=== PATIENT | female | born 1965 | race Caucasian/White ===

== ENCOUNTER 2016-10-11 12:55 | Emergency (ER) | payer OTHER ==
[~2016-10-11 12:55] MED LIST: ASPIR 8181 MG PO; ASPIRIN81 M4 PO; CLOPIDOGREL75 M1 PO; CLOPIDOGREL75 MG PO; COREG6.25 M1 PO; CORTEF10 M1 PO; CORTEF20 M1 PO; DOCUSATE SOD100 MG PO; ECOTRIN81 MG PO; ESCITALOPRAM OX10 MG PO; FERROUS SULFAT325 M1 PO; GABAPENTIN TAB600 MG PO; GABAPENTIN400 MG PO; HUMALOG 100U100 U/ML SC; LANTUS INS100 UNITS/ SC; LEVEMIR100 UNIT/1 SC; LIPITOR80 M1 PO; LISINOPRIL10 MG PO; MIRALAX17 GM PO; NEURONTIN800 M1 PO; NEURONTIN800 M2 PO; NOVOLOG100 U/ML SC; NOVOLOG100 UNIT/2; NOVOLOG100 UNIT/2 SC; PENICILLIN V P500 M1 PO; PERCOCET 325 MG1 TA2 PO; PRILOSEC 20MG C20 MG PO; PRINIVIL 5MG5 MG PO; SYNTHROID50 MCG PO; Senokot S PO; TYLENOL TAB 32325 MG PO; VICODIN5-300 PO; WELLBUTRIN 100100 MG PO
== END 2016-10-11 13:01 | disposition admitted as inpatient to this hospital (09) ==
LOC: ERH 12:55
DX: R06.02 Shortness of breath (principal)

== ENCOUNTER 2016-10-25 13:07 | Inpatient (IN) | payer OTHER ==
[~2016-10-25] VITALS: Ht 162.6 cm; Wt 63.5 kg
--- NOTE | 2016-10-25 13:10 | ED GENERAL ADULT ---
History of Present Illness General Chief Complaint: General Adult Stated Complaint: BIBA FOR HIGH BS Source: patient, family, EMS Exam Limitations: clinical condition Vital Signs & Intake/Output Vital Signs & Intake/Output Vital Signs Date Time Temp Pulse Resp B/P B/P Pulse O2 O2 Flow FiO2 Mean Ox Delivery Rate 10/26 1999 98 Room Air 10/25 1729 96.5 101 18 134/77 96 10/25 1632 98.7 99 22 147/76 99 Room Air 10/25 1535 97 21 142/74 98 Room Air 10/25 1444 97.7 108 20 147/76 95 Room Air 10/25 1320 97 Room Air 10/25 1318 97.2 105 22 152/105 99 Room Air Allergies Coded Allergies: codeine (ITCHING 08/02/15) Reconcile Medications Aspirin (Aspirin*) 81 MG TAB.CHEW 1 TAB PO DAILY HEART (Reported) Atorvastatin Calcium (Lipitor) 80 MG TABLET 1 TAB PO DAILY lipid lowering ( Reported) Carvedilol (Coreg) 6.25 MG TABLET 1 TAB PO BID heart health (Reported) Clopidogrel Bisulfate (Clopidogrel) 75 MG TABLET 1 TAB PO DAILY BLOOD THINNER (Reported) Escitalopram Oxalate 10 MG TABLET 1 TAB PO DAILY MENTAL HEALTH (Reported) Gabapentin (Neurontin) 800 MG TABLET 1 TAB PO TID NEUROPATHY (Reported) Hydrocortisone (Cortef) 20 MG TABLET 20 MG PO ONCE adrenal insufficiency in the concierge manager before breakfast Hydrocortisone (Cortef) 10 MG TABLET 10 MG PO ONCE adrenal insufficiency in the evening around the suppertime Insulin Aspart (Novolog) 100 UNIT/ML VIAL 0 SC SEE ADMIN CRITERIA DM 8-150 2 units 151-200 also give 2 units 201-250 3 units 251-300 4 units 301-350 5 units 351-400 6 units Insulin Detemir (Levemir) 100 UNIT/ML VIAL 4 UNIT SC BID DM Levothyroxine Sodium (Synthroid) 50 MCG TABLET 50 MCG PO ONCE hypothyrodism Lisinopril (Prinivil) 5 MG TAB 1 TAB PO DAILY BP (Reported) Triage Nurses Notes Reviewed? yes Onset: Abrupt Duration: day(s): (2) Timing: multiple episodes today Injury Environment: home Severity: moderate, severe No Modifying Factors: none Associated Symptoms: ABDOMINAL PAIN, NAUSEA, VOMITING HPI: 51 year old female presents via EMS from home for chief complaint of nausea, vomiting and abdominal pain for 2 days. According to her significant other she has been compliant with her long-acting insulin but ran out of her short acting insulin 1 week ago. She was unable to mixing picker tender the vial because it was too expensive. On Tuesday she was feeling fine. Yesterday she started with nausea and vomiting. Sugars have been running high at home. Patient complains of abdominal pain nausea vomiting. She is tachycardic on arrival with dry mucous membranes and ketotic breath. Past History Medical History Any Pertinent Medical History? see below for history Neurological: peripheral neuropathy EENT: NONE Cardiovascular: hyperlipidemia, STEMI, drug-eluting stent placement in October [address] elevation myocardial infarction Respiratory: NONE Gastrointestinal: NONE Hepatic: NONE Renal: NONE Musculoskeletal: NONE Psychiatric: depression Endocrine: diabetes (TYPE 1), hypothyroidism Blood Disorders: NONE Cancer(s): NONE RESOURCES REPRESENTATIVE/Reproductive: miscarriage History of MRSA: No History of VRE: No History of CDIFF: No Influenza Vaccine: 02/13/15 Surgical History Surgical History: tubal ligation, carpal tunnel surgery trigger finger surgery Psychosocial History Who do you live with Significant Other Services at Home None What is your primary language Eritrean Family History Family History, If Any: grandmother FH: breast cancer Hx Contributory? No Review of Systems Review of Systems Constitutional: Reports: weakness. Denies: chills, fever. EENTM: Reports: no symptoms. Respiratory: Denies: cough. Cardiovascular: Denies: chest pain. GI: Reports: abdominal pain, nausea, vomiting. Genitourinary: Reports: no symptoms. Musculoskeletal: Reports: no symptoms. Skin: Reports: no symptoms. Neurological/Psychological: Reports: anxiety. Hematologic/Endocrine: Denies: bruising, bleeding, polyuria, polydipsia. Immunologic/Allergic: Denies: splenectomy. All Other Systems: Reviewed and Negative Physical Exam Physical Exam General Appearance: alert, awake, moderate distress, severe distress, thin Head: atraumatic Eyes: Bilateral: PERRL, EOMI. Ears, Nose, Throat: DRY MUCUS MEMBRANES Neck: normal inspection, supple Respiratory: normal breath sounds, chest non-tender, no respiratory distress Cardiovascular: tachycardia Peripheral Pulses: 2+ radial (R), 2+ radial (L) Gastrointestinal: soft, non-tender Neurologic/Psych: no motor/sensory deficits, awake, alert, ORIENTED X 2 Skin: intact, normal color, warm/dry Core Measures ACS in differential dx? No CVA/TIA Diagnosis: No Severe Sepsis Present: No Septic Shock Present: No Progress Differential Diagnoses I considered the following diagnoses in my evaluation of the patient: [DKA, HYPERGLYCEMIA, INSULIN NON COMPLIANCE, PANCREATITIS, DRUG ABUSE] Plan of Care: Orders Procedure Date/time Status ARTERIAL BLOOD GAS (GEN) 10/26 0500 Active ICU LAB BUNDLE 10/26 0500 Active CBC WITHOUT DIFFERENTIAL 10/26 0500 Active ICU LAB BUNDLE 10/26 0100 Active Nothing by Mouth 10/25 D Active Lab Add-on Test 10/25 184 Active LACTIC ACID 10/25 1847 Complete Wound Care/Dressing 10/25 184 Complete Weight 10/25 1845 Active VTE Mechanical Prophylaxis 10/25 1845 Active Vital Signs 10/25 184 Active Turn and Reposition 10/25 184 Active Drains/Tubes 10/25 1844 Complete Teach/Educate 10/25 184 Active Skin Integrity Protocol 10/25 184 Active Skin/Pressure Ulcer Assess (Sk 10/25 1845 Active Precautions 10/25 184 Active Pain Treatment and Response 10/25 184 Active Nutritional Intake, Monitor 10/25 184 Active Isolation 10/25 1845 Active CIWA 10/25 184 Complete Patient Care Conference 10/25 1845 Active Activity/Ambulation 10/25 1845 Active BASIC ELECTROLYTES PLUS BUN&CR 10/25 1840 Complete Pathway - chart 10/25 1742 Active BLOOD CULTURE 10/25 1724 Active Code Status 10/25 1713 Active BASIC ELECTROLYTES PLUS BUN&CR 10/25 1610 Complete VRE ACTIVE SURVIELLANCE 10/25 1538 Active ACTIVE SURVEILLANCE NARES 10/25 1538 Active Saline Lock 10/25 1535 Active Pathway - chart 10/25 1535 Active House Staff 10/25 1535 Active Patient Data 10/25 1535 Active Patient Data 10/25 1456 Active Admit to inpatient 10/25 1447 Active Faria, Insertion/Removal/Asses 10/25 1443 Active CULTURE,URINE 10/25 1443 Active LACTIC ACID 10/25 1410 Complete FingerStick- Glucose 10/25 1318 Complete Telemetry/Tobacco Stripping Machine Operator 10/25 1316 Active MIXED VENOUS BLOOD GAS (GEN) 10/25 1315 Active Intake & Output 10/25 1315 Active URINE DRUGS OF ABUSE 10/25 1315 Complete URINALYSIS 10/25 1315 Complete TROPONIN LEVEL 10/25 1315 Complete PARTIAL THROMBOPLASTIN TIME 10/25 1315 Complete PROTHROMBIN TIME 10/25 1315 Complete MAGNESIUM 10/25 1315 Complete LIPASE 10/25 1315 Complete ETHANOL 10/25 1315 Complete COMPREHENSIVE METABOLIC PANEL 10/25 1315 Complete CBC WITHOUT DIFFERENTIAL 10/25 1315 Complete ACETONE 10/25 1315 Complete EKG 10/25 1315 Active VTE Mechanical Prophylaxis 10/25 UNK Active Vital Signs 10/25 UNK Active MISTAKE 10/25 UNK Active Intake & Output 10/25 UNK Complete FingerStick- Glucose 10/25 UNK Complete FingerStick- Glucose 10/25 UNK Active Activity/Ambulation 10/25 UNK Active Current Medications Sig/Maximus Start time Last Medication Dose Stop Time Status Admin Atorvastatin Calcium 80 MG 1700 10/26 1700 AC (Lipitor) Aspirin 81 MG DAILY 10/26 1000 AC (Aspirin) Gabapentin 800 MG TID 10/26 1000 AC (Neurontin) Lisinopril 5 MG DAILY 10/26 1000 AC (Prinivil) Carvedilol 6.25 MG BID 10/25 2200 AC (Coreg) Heparin Sodium 5,000 UNIT Q8 10/25 2200 AC (Porcine) Promethazine HCl 50 MG ONCE ONE 10/25 2100 CAN (Phenergen) 10/25 2101 Potassium Chloride 20 MEQ Q8H 10/25 1845 AC 10/25 (KCl 20MEQ in D5W 1926 2NS 1000ML) Dextrose/Sodium 1,000 ML Chloride (D5W-1/2 Normal Saline 1000ML) Clopidogrel Bisulfate 75 MG DAILY 10/25 1802 AC 10/25 (Plavix) 1927 Acetaminophen 650 MG Q6P PRN 10/25 1745 AC (Tylenol) Acetaminophen 1,000 MG Q6P PRN 10/25 1745 AC (Ofirmev) Morphine Sulfate 2 MG Q4P PRN 10/25 1745 AC (Morphine) Potassium Chloride 20 MEQ 200 MLS/HR 10/25 1730 CAN (KCl 20MEQ in NS 1000ML) Ondansetron HCl 4 MG Q6P PRN 10/25 1630 AC 10/25 (Zofran) 1823 Hydrocortisone 50 MG Q8 10/25 1527 AC 10/25 Sodium Succinate 1628 (Solucortef) Laboratory Tests 10/25/16 1900: Lactic Acid 1.4 10/25/16 1900: Anion Gap 13, Estimated GFR 53 L, BUN/Creatinine Ratio 26.4 H 10/25/16 1810: Sodium Cancelled, Potassium Cancelled, Chloride Cancelled, Carbon Dioxide Cancelled, Anion Gap Cancelled, BUN Cancelled, Creatinine Cancelled, BUN/ Creatinine Ratio Cancelled 10/25/16 1810: Sodium Cancelled, Potassium Cancelled, Chloride Cancelled, Carbon Dioxide Cancelled, Anion Gap Cancelled, BUN Cancelled, Creatinine Cancelled, Glucose Cancelled, Calcium Cancelled, Phosphorus Cancelled, Magnesium Cancelled, Total Bilirubin Cancelled, AST Cancelled, ALT Cancelled, Albumin Cancelled 10/25/16 1640: Anion Gap 19 H, Estimated GFR 43 L, BUN/Creatinine Ratio 24.6 10/25/16 1610: Sodium Cancelled, Potassium Cancelled, Chloride Cancelled, Carbon Dioxide Cancelled, Anion Gap Cancelled, BUN Cancelled, Creatinine Cancelled, Glucose Cancelled, Calcium Cancelled, Phosphorus Cancelled, Magnesium Cancelled, Total Bilirubin Cancelled, AST Cancelled, ALT Cancelled, Albumin Cancelled 10/25/16 1502: Urine Opiates Screen < 100.00, Methadone Screen 43, Barbiturate Screen < 60, Ur Phencyclidine Scrn < 6.00, Amphetamines Screen < 100, U Benzodiazepines Scrn < 85, Urine Cocaine Screen > 1000 H, Urine Cannabis Screen > 80.00 H, Urinalysis LIGHT H, Urine Color YEL, Urine Clarity CLEAR, Urine pH 6.0, Ur Specific [place] 1.020, Urine Protein TRACE H, Urine Ketones >=80, Urine Nitrite NEG, Urine Bilirubin NEG, Urine Urobilinogen 0.2, Ur Leukocyte Esterase NEG, Ur Microscopic SEDIMENT EXAMINED, Urine RBC FEW H, Urine WBC RARE, Ur Epithelial Cells RARE, Urine Bacteria FEW H, Hyaline Casts RARE H, Granular Casts RARE H , Urine Hemoglobin TRACE-INTACT, Urine Glucose >=1000 H 10/25/16 1410: Anion Gap 20 H, Estimated GFR 37 L, BUN/Creatinine Ratio 26.7 H, Glucose 607 *H, Lactic Acid 2.5 H, Calcium 8.1 L, Magnesium 1.9, Total Bilirubin 0.7, AST 20, ALT 33, Alkaline Phosphatase 123, Troponin I 0.02, Total Protein 6.0 L, Albumin 3.6, Globulin 2.4, Albumin/Globulin Ratio 1.5, Lipase 73, PT 11.6, INR 1.11, APTT 31, Serum Alcohol < 10.0, Acetone Level POSITIVE AT 1:8 DIL 10/25/16 1320: Bicarbonate Actual 5 L, Mixed VBG pH 7.14 L, Mixed VBG pCO2 15 L, Mixed VBG O2 Saturation 51 H, Carboxyhemoglobin 0.1 L, O2 Concentration % RA, O2 Delivery Method RA, CBC w Diff MAN DIFF ORDERED, RBC 4.20, MCV 90.7, MCH 29.9, RDW 13.6, MPV 9.7, Gran % 92.0 H, Lymphocytes % 4.6 L, Monocytes % 3.2, Eosinophils % 0, Basophils % 0.2, Absolute Granulocytes 20.2 H, Segmented Neutrophils 91 H, Band Neutrophils 5, Absolute Lymphocytes 1.0 L, Lymphocytes 3 L, Monocytes 1 L, Absolute Monocytes 0.7 H, Absolute Eosinophils 0, Absolute Basophils 0, Platelet Estimate ADEQUATE, Normocytic RBCs VERIFIED, Normochromic RBCs VERIFIED, PUBS MCHC 32.9 L, Phlebotomy Draw Site LAC Microbiology 10/25 2049 BLOOD: Blood Culture - RECD 10/26 1919 BLOOD: Blood Culture - RECD 10/25 183 UPPER RESP: Surveillance Culture - RECD 10/25 1830 GI: Surveillance Culture - RECD 10/25 1502 URINE ROUT: Urine Culture - RECD ph 7.14 on mixed venous gas. acteone positive, bicarb 8. DR ASENCIO CONSULTED WHO EVALUTED PATIENT IN THE ED WELL DR ESTEVES WHO ADMITTED PATIENT. SHE RECEIVED 4 LITRES IV FLUIDS AND INSULIN DRIP WAS STARTED. HYDROCORTISONE [address] ASENCIO PATIENT WITH ADRENAL INSUFFICIENCY. (SARAI BONDS,JOSAFAT) Diagnostic Imaging: Viewed by Me: Radiology Read, CT Scan. Discussed w/RAD: Radiology Read, CT Scan. CXR Impression: PATIENT: JES PAIGE PRESENT AGE: 51 PATIENT ACCOUNT NO: [id number] : 66 LOCATION: [facility] ORDERING PHYSICIAN: JOSAFAT MOON MD SERVICE DATE: 10/25/16666 EXAM TYPE: RAD - XRY -PORTABLE CHEST XRAY EXAMINATION: XR PORTABLE CHEST CLINICAL INFORMATION: DKA. Critically ill. COMPARISON: None TECHNIQUE: Portable frontal view of the chest was obtained. 2:11 PM. FINDINGS: No significant abnormality is noted involving the heart, lungs, mediastinum, bony thorax or soft tissues. Incidental note made of a small artifact over the left upper lung. EKG leads overlie the chest as well. IMPRESSION: Unremarkable examination. DICTATED BY: GWENDOLYN BURKS MD DATE/ TIME DICTATED:10/25/161446 COMPOSITION WORKER:DORIS DATE/TIME TRANSCRIBED: 10/25/161446 CONFIDENTIAL, DO NOT COPY WITHOUT APPROPRIATE AUTHORIZATION. < Electronically signed in Other Vendor System> SIGNED BY: GWENDOLYN BURKS MD 1453 Initial ED EKG: SINUS TACHYCARDIA Departure Departure Time of Disposition: 1447 Disposition: STILL A PATIENT Condition: Stable Clinical Impression Primary Impression: DKA (diabetic ketoacidoses) Secondary Impressions: Cannabis abuse, Cocaine abuse Referrals: TIMBO SANTA MD (PCP/Family) Departure Forms: Customer Survey General Discharge Information Admission Note Spoke With: DANIELITO BONDS,Mikey RIZZO Documentation of Exam: Documentation of any treatments & extenuating circumstances including Concerns Regarding Discharge (functional status, medication knowledge or non-compliance, living conditions, etc.) that warrant an admission rather than observation: [ICU MONITOR, IV FLUID RESUSSCITATION, INSULIN DRIP, MONITOR ELECTROLYTES, MONITOR I/ O, ENDOCRINE CONSULT DR ASENCIO, F/U CT ABDOMEN/PELVIS ] Critical Care Note Critical Care Note Critical Care Time: 30-74 min
--- NOTE | 2016-10-25 13:27 | NUR ---
51 Y/O FEMALE BIBA FROM HOME FOR EVAL OF N/V SINCE YESTERDAY AND HIGH BLOOD SUGARS. PER EMS, GLUCOMETER READ "HIGH". PT ADMITS TO RUNNING OUT OF SHORT ACTING INSULIN RECENTLY HOWEVER TOLD THIS RN SHE LAST USED IT THIS AM. C/O N/V. DENIES PAIN. MUCOUS MEMBRANES DRY. PRE HOSPITAL IV IN PLACE TO R LOWER EXTREMITY. NORMAL SALINE INFUSING ON ARRIVAL TO ED. MED WITH CHRISTIANO MOON AT THE BEDSIDE
[2016-10-25 13:33] LABS: ABSOLUTE BASOPHIL COUNT 0 /CUMM (0.0-0.2); ABSOLUTE EOSINOPHIL COUNT 0 /CUMM (0.0-0.7); ABSOLUTE GRANULOCYTE CT 20.2 /CUMM (1.4-6.5); ABSOLUTE MONOCYTE COUNT 0.7 /CUMM (0.10-0.60); BASOPHIL % 0.2 % (0.0-2.0); EOSINOPHIL % 0 % (0-5); HEMATOCRIT 38.1 % (37-47); MEAN CORPUSCULAR HGB 29.9 PG (27.0-31.0); MEAN CORPUSCULAR HGB CONC 32.9 G/DL (33.0-37.0); MEAN CORPUSCULAR VOLUME 90.7 FL (81.0-99.0); MEAN PLATELET VOLUME 9.7 FL (7.4-10.4); PLATELET COUNT 292 /CUMM (130-400); RBC DISTRIBUTION WIDTH 13.6 % (11.5-14.5)
--- NOTE | 2016-10-25 14:05 | NUR ---
22 G DIANE PLACED IN RW. LITER # 2 OF N/S STARTED W/O VIA RLE LITER # 3 OF N/S STARTED W/O VIA RW DR MOON IN TO RE-EVALUATE PT
--- NOTE | 2016-10-25 14:06 | NUR ---
PHARMACY CALLED - MIXING INSULIN DRIP AND WILL CALL WHEN READY
--- NOTE | 2016-10-25 14:12 | NUR ---
SST AND BLUE TOP DRAWN AND SENT TO LAB
--- NOTE | 2016-10-25 14:14 | NUR ---
MED WITH ADDITIONAL DOSE ZOFRAN PER JUL. XRAY AT BEDSIDE
[2016-10-25 14:30] LABS: PT 11.6 SEC (9.4-12.5); PTT 31 SEC (25-37)
--- NOTE | 2016-10-25 14:44 | NUR ---
UNABLE TO VERIFY HOME MEDS WITH PT
--- NOTE | 2016-10-25 14:47 | NUR ---
4TH LITER INFUSING PER MARY ESTEVES AT THE BEDSIDE AWAITING POTASSIUM RESULT PRIOR TO INSULIN DRIP START.
--- NOTE | 2016-10-25 14:48 | NUR ---
CRITICAL TEST RESULTS [id number] JES PAIGE 51 F TESTS AND RESULTS: GLUCOSE 607, POTASSIUM 6, AND CO2 8 Results received and read back by: CARYL CAI Results received date and time: 10/25/16 1449 The following provider was notified of the results, and read the results back: DR. MOON Notified date and time: 10/25/16 at 1449
--- NOTE | 2016-10-25 14:53 | RADIOLOGY REPORT ---
EXAMINATION: XR PORTABLE CHEST CLINICAL INFORMATION: DKA. Critically ill. COMPARISON: None TECHNIQUE: Portable frontal view of the chest was obtained. 2:11 PM. FINDINGS: No significant abnormality is noted involving the heart, lungs, mediastinum, bony thorax or soft tissues. Incidental note made of a small artifact over the left upper lung. EKG leads overlie the chest as well. IMPRESSION: Unremarkable examination.
--- NOTE | 2016-10-25 15:02 | NUR ---
URINE OBTAINED AND SENT
--- NOTE | 2016-10-25 15:03 | NUR ---
DELA CRUZ INSERTED PER ORDER. DRAINING 800 ML LIGHT CLEAR YELLOW URINE, TRIO SENT BY [facility]ST. 3RD AND 4TH LITERS INFUSING. AWAITING INSULIN DRIP FROM PHARMACY.
--- NOTE | 2016-10-25 15:15 | NUR ---
INSULIN DRIP INITIATED AT 5 UNITS/HR - 5 ML/HR PER DR MOON 4TH LITER CONTINUES TO INFUSE. PT C/O FEELING COLD. NO OTHER COMPLAINTS. ADDITIONAL BLANKETS PROVIDED.
--- NOTE | 2016-10-25 15:16 | NUR ---
REPORT GIVEN TO SAGE GILLESPIE
--- NOTE | 2016-10-25 15:42 | History & Physical ---
See Addendum ROXY BOLTONELVIS 10/25/16 1541: General Information and HPI MD Statement: I have seen and personally examined JES PAIGE and documented this H& P. The patient is a 51 year old F who presented with a patient stated chief complaint of [DKA]. Source of Information: patient Exam Limitations: clinical condition History of Present Illness: Ms. Paige is a 51-year-old female with past medical history of coronary artery disease status post-drug eluting stent placement in 2014,type 1 diabetes mellitus on Levemir 4 units twice a day and NovoLog sliding scale, history of acute blood loss anemia secondary to vaginal bleeding, subsequent hysterectomy in 2014, hyperlipidemia, depression with suicidal ideation, hypothyroidism on Synthroid, adrenal insufficiency on steroids both 2/2 to hypopituatarism diagnosedin 2015 with no obvious pituatary lesions on CT scan, on medical marijuana to increase appetite, cocaine abuser, current active smoker, occasional alcoholic presented to the emergency department from home via EMS chief complain off nausea, vomiting and abdominal pain since one week prior to admission however worsening for past 2 days. Her significant other - was at bedside and she has been living with him for 33 years and was contributing to the history intermittently. As per the patient, she was on Levemir 4 units twice a day, and also on NovoLog sliding scale, however she stopped taking her NovoLog sliding scale at least one week prior to admission, as she does not have an insurance that pays for prescription and therefore it was too expensive for her.She noticed that her sugars were running high therefore she herself increase the Levemir to 10 units twice a day, she continued taking the long-acting and was not taking the short- acting insulin. She did endorse that her sugars had been running high and the night prior to admission it was noted to be 476 and the second one was in 500s. She also does endorse that she has not been very compliant with checking her sugars and has not checked her sugars regular basis in last few months. She also snorts cocaine and the last time she used cocaine was 2 days prior to presentation.she smokes one pack of cigarettes in 3-4 days and has been smoking since she was 16 years of age. He says that she has had continuous vomiting and puking episodes, feels nauseous and has not been able to keep anything down for the last 2-3 days. 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 She performs all her activities of living by herself, drives around, she sees Dr. braga and as her primary care, Dr. mahoney as her general studies program chair and Dr. Vázquez as her application tester. Allergies/Medications Allergies: Coded Allergies: codeine (ITCHING 08/02/15) Home Med list Aspirin (Aspirin*) 81 MG TAB.CHEW 1 TAB PO DAILY HEART (Reported) Atorvastatin Calcium (Lipitor) 80 MG TABLET 1 TAB PO DAILY lipid lowering ( Reported) Carvedilol (Coreg) 6.25 MG TABLET 1 TAB PO BID heart health (Reported) Clopidogrel Bisulfate (Clopidogrel) 75 MG TABLET 1 TAB PO DAILY BLOOD THINNER (Reported) Escitalopram Oxalate 10 MG TABLET 1 TAB PO DAILY MENTAL HEALTH (Reported) Gabapentin (Neurontin) 800 MG TABLET 1 TAB PO TID NEUROPATHY (Reported) Hydrocortisone (Cortef) 20 MG TABLET 20 MG PO ONCE adrenal insufficiency 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 before breakfast Hydrocortisone (Cortef) 10 MG TABLET 10 MG PO ONCE adrenal insufficiency in the evening around the suppertime Insulin Aspart (Novolog) 100 UNIT/ML VIAL 0 SC SEE ADMIN CRITERIA DM 8-150 2 units 151-200 also give 2 units 201-250 3 units 251-300 4 units 301-350 5 units 351-400 6 units Insulin Detemir (Levemir) 100 UNIT/ML VIAL 4 UNIT SC BID DM Levothyroxine Sodium (Synthroid) 50 MCG TABLET 50 MCG PO ONCE hypothyrodism Lisinopril (Prinivil) 5 MG TAB 1 TAB PO DAILY BP (Reported) Compliance With Home Meds: GOOD Past History Travel History Traveled to [place] past 21 day No Medical History Neurological: peripheral neuropathy EENT: NONE Cardiovascular: hyperlipidemia, STEMI, drug-eluting stent placement in October [address] elevation myocardial infarction Respiratory: NONE Gastrointestinal: NONE Hepatic: NONE Renal: NONE Musculoskeletal: NONE Psychiatric: depression Endocrine: diabetes (TYPE 1), hypothyroidism Blood Disorders: NONE Cancer(s): NONE 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 spouse Services at Home: None Primary Language: [place] Smoking Status: Current Everyday Smoker ETOH Use: occasional use Illicit Drug Use: cocaine, marijuana Living Will? no Functional Ability ADLs Independent: dressing, eating, toileting, bathing. Ambulation: independent IADLs Independent: shopping, housework, finances, food prep, telephone, transportation , medication admin. 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 EENTM: Reports: see HPI. Cardiovascular: Denies: chest pain, edema, orthopena, palpitations, peripheral edema, syncope. Respiratory: Denies: cough, hemoptysis, orthopnea, short of breath, sputum production, stridor, wheezing. GI: Reports: bloating, nausea, vomiting. Denies: constipation, diarrhea, distention , bowel incontinence, melena, bloody stool, changes in stool. Genitourinary: Denies: discharge, dysuria, frequency, hematuria. Musculoskeletal: Denies: back pain, gout, joint pain, joint swelling, muscle pain, muscle stiffness. Skin: Denies: cysts, change in skin color, change in hair/nails, dryness. Neurological/Psychological: Reports: no symptoms. Hematologic/Endocrine: Reports: no symptoms. Immunologic/Allergic: Reports: no symptoms. All Other Systems: Reviewed and Negative Exam & Diagnostic Data Last 24 Hrs of Vital Signs/I&O Vital Signs Date Time Temp Pulse Resp B/P B/P Pulse O2 O2 Flow FiO2 Mean Ox Delivery Rate 10/25 1444 97.7 108 20 147/76 95 Room Air 10/25 1320 97 Room Air 10/25 1318 97.2 105 22 152/105 99 Room Air Intake & Output 10/25 1600 10/25 0800 10/25 0000 Intake Total 3000 Output Total 800 Balance 2200 Intake, IV 3000 Output, Urine 800 Patient 63.503 kg Weight Weight Reported by Patient Measurement Method Physical Exam General Appearance Alert, Oriented X3, Cooperative, Mild Distress Skin No Rashes, No Breakdown, No Significant Lesion Skin Temp/Moisture Exam: Cool/Dry Sepsis Skin Exam (color): Pale HEENT Atraumatic, PERRLA, EOMI Neck Supple, No JVD Lymphatic no LAD Cardiovascular Regular Rate, Normal S1, Normal S2 Lungs Clear to Auscultation, Normal Air Movement Abdomen Normal Bowel Sounds, Soft, No Tenderness Neurological Strength at 5/5 X4 Ext, Normal Tone, Sensation Intact, Cranial Nerves 3-12 NL Extremities No Clubbing, No Cyanosis, No Edema, Normal Pulses Vascular Normal Pulses Last 24 Hrs of Labs/Hi: Laboratory Tests 10/25/16 1502: Urine Opiates Screen Pending, Methadone Screen Pending, Barbiturate Screen Pending, Ur Phencyclidine Scrn Pending, Amphetamines Screen Pending, U Benzodiazepines Scrn Pending, Urine Cocaine Screen Pending, Urine Cannabis Screen Pending, Urinalysis LIGHT H, Urine Color YEL, Urine Clarity CLEAR, Urine pH 6.0, Ur Specific [place] 1.020, Urine Protein TRACE H, Urine Ketones >=80, Urine Nitrite NEG, Urine Bilirubin NEG, Urine Urobilinogen 0.2, Ur Leukocyte Esterase NEG, Ur Microscopic SEDIMENT EXAMINED, Urine RBC FEW H, Urine WBC RARE , Ur Epithelial Cells RARE, Urine Bacteria FEW H, Hyaline Casts RARE H, Granular Casts RARE H, Urine Hemoglobin TRACE-INTACT, Urine Glucose >=1000 H 10/25/16 1410: Anion Gap 20 H, Estimated GFR 37 L, BUN/Creatinine Ratio 26.7 H, Glucose 607 *H, Calcium 8.1 L, Magnesium 1.9, Total Bilirubin 0.7, AST 20, ALT 33, Alkaline Phosphatase 123, Troponin I 0.02, Total Protein 6.0 L, Albumin 3.6, Globulin 2.4, Albumin/Globulin Ratio 1.5, Lipase 73, PT 11.6, INR 1.11, APTT 31, Serum Alcohol < 10.0, Acetone Level POSITIVE AT 1:8 DIL 10/25/16 1320: Bicarbonate Actual 5 L, Mixed VBG pH 7.14 L, Mixed VBG pCO2 15 L, Mixed VBG O2 Saturation 51 H, Carboxyhemoglobin 0.1 L, O2 Concentration % RA, O2 Delivery Method RA, CBC w Diff MAN DIFF ORDERED, RBC 4.20, MCV 90.7, MCH 29.9, RDW 13.6, MPV 9.7, Gran % 92.0 H, Lymphocytes % 4.6 L, Monocytes % 3.2, Eosinophils % 0, Basophils % 0.2, Absolute Granulocytes 20.2 H, Segmented Neutrophils 91 H, Band Neutrophils 5, Absolute Lymphocytes 1.0 L, Lymphocytes 3 L, Monocytes 1 L, Absolute Monocytes 0.7 H, Absolute Eosinophils 0, Absolute Basophils 0, Platelet Estimate ADEQUATE, Normocytic RBCs VERIFIED, Normochromic RBCs VERIFIED, PUBS MCHC 32.9 L, Phlebotomy Draw Site LAC Microbiology 10/25 1537 UPPER RESP: Surveillance Culture - COLB 10/25 1538 GI: Surveillance Culture - COLB 10/25 1502 URINE ROUT: Urine Culture - RECD Diagnostic Data EKG Results nsr, sinus tachycardia, AZ 180, Qtc :473, T-wave inversions in V2, nonspecific ST-T wave changes. CXR Results FINDINGS: No significant abnormality is noted involving the heart, lungs, mediastinum, bony thorax or soft tissues. Incidental note made of a small artifact over the left upper lung. EKG leads overlie the chest as well. IMPRESSION: Unremarkable examination. Other Results CT abdome and pelvis pending Assessment/Plan Assessment: In summary, Ms Parks is a 51-year-old female with past medical history of coronary artery disease status post-drug eluting stent placement in 2014,type 1 diabetes mellitus on Levemir 4 units twice a day and NovoLog sliding scale, history of acute blood loss anemia secondary to vaginal bleeding, subsequent hysterectomy in 2014, hyperlipidemia, depression with suicidal ideation, secondary hypothyroidism on Synthroid, adrenal insufficiency on steroids - both 2/2 to hypopituitarism diagnosed on last admission in 2015, on medical marijuana to increase appetite, cocaine abuser, current active smoker, occasional alcoholic presented to the emergency department from home via EMS chief complain of nausea, vomiting and abdominal pain since one week prior to admission however worsening for past 2 days. Vitals on admission : MAXIMUM TEMPERATURE of 97.7, tachycardic at 108, respiration of 20, blood pressure of 152/105, she was 99% saturating on room air. White Count of 22.0, H/H of 12.5/38.1, platelet of 292. Electrolytes : sodium of 132, potassium of 6.0, BUN/creatinine 40/1.5 (baseline creatinine 1.5), anion gap of 20, glucose elevated at 607, serum acetone positive. ABG showed pH of 7.14/PCO2 of 15/PO2 of 51/carboxyhemoglobin of 0.1/bicarbonate of 5. She had calcium of 8.1, magnesium of 1.9, initial set of troponin was 0.02. Lipase was 73, serum alcohol level was less than 10. Liver function tests are within normal limits. Chest X-ray did not show any acute cardiacpulmonary changes. Initial EKG in the ED showed sinus tachycardia with nonspecific ST-T wave changes QTC of 473. Urinalysis showed no signs of infection, however significant glucosuria, positive ketones. Urine toxicology was positive for urine cocaine send urine cannabis. Of note, intial set of lactic acid was not drawn in the ED, patient does meet positive sepsis criteria due to tachycardiaa amd white count, increased RR, however this presentations seems to be 2/2 to DKA and not sepsis, it's already been > 6 hours since admission, I talked to lab, lactic acid was added to intial labs drawn, luckily they had a mckeon top from admission, however repeat is ordered now which is more than 3 hours apart. Patient did recieve enough fluids, however as there is no focus of infection now, we will not start emperic antibiotic, cultures were sent. Problem list alongwith assessment and plan. #1History of type 1 diabetes mellitus complicated with diabetic neuropathy, now presenting in DKA, most likely presents precipitated by noncompliance and drug abuse. Edwina does have anion gap metabolic acidosis with high sugars, poor oral intake, with positive serum ketones, she seems to be in florid DKA. Will start IV fluid supplementation with normal saline.She also seems to be dehydrated and hypovolemic therefore she needs fluid supplementation at the rate of 15-20 mL per KG/lean body weight/hour. He did receive 4 L of normal saline so far. Her initial potassium is about 6, we will not supplement potassium for now, untill if falls < 5.3, will add to fluids. Subsequent BEP at 14:10 and 16:10 PM, to ensure anion gap is corrected and monitor potassium closely.Continue insulin gtt, reduce to 4 unit/ hour, currently at 4 units per hour. sodium 132, when corrected for hyperglycemia , falls WNL. #2 Nausea/vomiting/poor oral intake. #3 Hyperkalemia 2/2 DKA and cellular shift #4 leucocytosis most likely reactive. #5 CITLALLI most likely prerenal 2/2 to dehydration 2/2 to DKA #6 Anion Gap metabolic acidosis 2/2 to DKA #7 Cocaine intoxication #8 H/o hypopituitarism #9 hypothyroidism and adrenal insufficiency 2/2 ot hypopituitarism. #10 H/o CAD s/p stent ( drug eluting ) in 2014 #11 h/o depression Plan : Respiratory * Not in any respiratory distress * Current active smoker, no COPD diagnosis. * CXR within normal range, no acute Cardiopulmonary findings. * White count most likely reactive. * Patient in non-anion gap metabolic acidosis, compensated with initial respiratory alkalosis as the patient was in respiratory distress with quick shallow breaths,however currently stable. * Continue to monitor oxygen keep oxygen saturation greater than 92%. * Repeat ABG to ensure correction of the acidosis. Infectious Disease Leucocytosis reactive * Even though patient, does meet sepsis criteria with tachycardia, white count, however the white count seems to be reactive, and the tachycardia seems to be due to dehydration. * However blood cultures, respiratory cultures were sent. * Patient does not look to be in sepsis. * However will check lactic acid X2. * Chest x-ray negative. * Ct to follow Ct abdomen and pelvis , pending. * Ct hydration. * Continue to monitor vitals. Cardiology H/o CAD s/p drug eluting stent placement ( 2014) Sinus tachycardia most like 2/2 to dehydration * Ct aspirin from am. * Ct statin from am. * Ct plavix from am. * Will start coreg today. * Last echo in 2016, 03/09/2016, showed EF greater than 60%, no diastolic dysfunction, no wall motion abnormalities. * Initial set of troponins negative. Hematology * h/h stable Metabolic AGMA 2/2 to DKA hypopituitarism secondary hyperthyroidism and adrenal insufficiency Hyperkalemia * Ct monitor fingerstick every hour. * Ct monitoring BEP, anion gap, bicarbonate, blood sugar every 2-4 hours as required. * Continue insulin drip at the rate of 4 GTT, taper as per blood sugar. * Once the blood sugar is below 250, we will change the IV normal saline to D5W, we will add potassium as needed once potassium level is less than 5.3. * Pt has history of hypopituitarism, she was not hypotensive, therefore no stress dose of steroids needed, however we will continue 50 every 8 hydrocortisone,per endo * Continue Synthroid at home dosage. * Ct gabapentin 800 TID from AM for DM neuropathy * Plan discussed with Dr. Mahoney. Alimentary * npo for now * advance as tolerated in am. * CC-3 diet in am * Ct zofran PRN for nausea * If more doses of zofran needed, please repeat EKG to ensure prolonged Qtc absent, last Qtc :473. Neurological/psychiatric * cocaine, marijuana positive on urine toxicology. * IV Ativan when necessary for cocaine withdrawal, if seems to be withdrawing, currently doesnt seem to be withdrawing. * patient alert, oriented but lethargic. * Eventual psych consult. Current active smoker drug abuser : smoking cessation couselling, cocaine abuse counselling. Doctors : PCP : Dr Melissa Braga Endo : Dr. Mahoney Cardio : Dr. Vázquez. Diet :NPO for now, then CC-3 DVT px :heparin and ALPS Mild/ moderate and severe PP. Full code As Ranked By This Provider Problem List: 1. DKA (diabetic ketoacidoses) 2. Leukocytosis Core Measures/Miscellaneous Acute Coronary Syndrome ACS Diagnosis: No Cerebrovascular Accident CVA/TIA Diagnosis: No Congestive Heart Failure CHF Diagnosis: No VTE (View Protocol) VTE Risk Factors: Age > 40 No [facility] VTE prophylaxis d/t: No contraindications No VTE Pharm Prophylaxis d/t: No contraindications VTE Diagnosis: No VTE Type: NONE VTE Confirmed by (Test): NONE Sepsis (View Protocol) Severe Sepsis Present: No BC x2: No Lactic Acid x2: No IV ABX Broad Spectrum: No Septic Shock Septic Shock Present: No BC x2: No Lactic Acid: No IV ABX Broad Spectrum: No Focused Exam Completed: No NS/LR 30ml/kg w/in 3hrs: No IV Vasopressors started: No Miscellaneous Documentation Attending Case Discussed With: Mikey ESTEVES MD Primary Care Physician: TIMBO SANTA MD Patient sees these Specialists Dr mahoney, Dr vázquez, Level of Patient Care: Critical Care (CRI) Consults Needed: Consulting Specialty: Endocrinology Consulting Physician: Dr mahoney Reason for Consult: DKA Resident Review Statement Resident Statement: admitted by resident
--- NOTE | 2016-10-25 15:44 | NUR ---
pt admitted to room 102
--- NOTE | 2016-10-25 16:31 | NUR ---
INSULIN DRIP DECREASED TO 4 UNTS/HR DIRECTED FOR B.S. OF 444 LITER # 5 OF N/S STARTED DIRECTED
--- NOTE | 2016-10-25 16:45 | Cons- Endocrinology ---
General Information and HPI Consulting Request Date of Consult: 10/25/16 Requested By: ER team Reason for Consult: management of DKA; patient has had hx of DM type 1, secondary adrenal insufficiency and secondary hypothyroidism Source of Information: patient, old records Exam Limitations: no limitations History of Present Illness: Patient has had history of diabetes type 1 which was diagnosed when she was 14 years ago complicated with neuropathy. At home she was supposed to be on Lantus 10 units twice a day and Humalog before meals. In July 2015, her hemoglobin A1c was 8.1%. However she was out of Humalog for more than a week due to the cost. In addition she was diagnosed with secondary hypothyroidism when she was in [facility] for major depression in June 2015 and she was put on thyroid hormone replacement. At that time her a.m. cortisol was 12.1. However in February,, patient was admitted to ICU for hypotension after she had a strep throat. The random cortisol was only 3.7 and then she was diagnosed with secondary adrenal insufficiency. she was discharged home on hydrocortisone 10 mg in the morning and 5 mg at 4 pm, Levothyrioxine 50 mcg daily. MRI of pituitary was done in the past and it was unremarkable. She presented to the ER with chief complaint of having nausea vomiting and abdominal pain for 1 week. In ER her glucose was 607, Cr 1.5, K 6.0, bicarb 8, AG 20, PH 7.14. Drug screening showed positive cocaine of > 1000. She received NS 4 liters and was started on insulin drip at 5 units per hour. Allergies/Medications Allergies: Coded Allergies: codeine (ITCHING 08/02/15) Home Med List: Aspirin (Aspirin*) 81 MG TAB.CHEW 1 TAB PO DAILY HEART (Reported) Atorvastatin Calcium (Lipitor) 80 MG TABLET 1 TAB PO DAILY lipid lowering ( Reported) Carvedilol (Coreg) 6.25 MG TABLET 1 TAB PO BID heart health (Reported) Clopidogrel Bisulfate (Clopidogrel) 75 MG TABLET 1 TAB PO DAILY BLOOD THINNER (Reported) Escitalopram Oxalate 10 MG TABLET 1 TAB PO DAILY MENTAL HEALTH (Reported) Gabapentin (Neurontin) 800 MG TABLET 1 TAB PO TID NEUROPATHY (Reported) Hydrocortisone (Cortef) 20 MG TABLET 20 MG PO ONCE adrenal insufficiency 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 Cardiovascular: Reports: palpitations. GI: Reports: abdominal pain, nausea, vomiting. Genitourinary: Denies: dysuria. Hematologic/Endocrine: Reports: polydipsia. 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 spouse Services at Home: None Primary Language: Latvian Functional Ability ADLs Independent: dressing, eating, toileting, bathing. Ambulation: independent IADLs Independent: shopping, housework, finances, food prep, telephone, transportation , medication admin. Exam & Diagnostic Data Last 24 Hrs of Vital Signs/I&O Vital Signs Date Time Temp Pulse Resp B/P B/P Pulse O2 O2 Flow FiO2 Mean Ox Delivery Rate 10/25 1632 98.7 99 22 147/76 99 Room Air 10/25 1535 97 21 142/74 98 Room Air 10/25 1444 97.7 108 20 147/76 95 Room Air 10/25 1320 97 Room Air 10/25 1318 97.2 105 22 152/105 99 Room Air Intake & Output 10/25 1600 10/25 0800 10/25 0000 Intake Total 3000 Output Total 800 Balance 2200 Intake, IV 3000 Output, Urine 800 Patient 140 lb Weight Weight Reported by Patient Measurement Method Physical Exam General Appearance: mild distress Respiratory: lungs clear Cardiovascular: tachycardia Gastrointestinal: soft Extremities: no edema Labs/Hi Results: Laboratory Tests 10/25 10/25 10/25 1640 1610 1502 Chemistry Sodium (137 - 145 mmol/L) 138 Cancelled Potassium (3.5 - 5.1 mmol/L) 4.0 Cancelled Chloride (98 - 107 mmol/L) 109 H Cancelled Carbon Dioxide (22 - 30 mmol/L) 10 L Cancelled Anion Gap (5 - 16) 19 H Cancelled BUN (7 - 17 mg/dL) 32 H Cancelled Creatinine (0.5 - 1.0 mg/dL) 1.3 H Cancelled Estimated GFR (>60 ml/min) 43 L BUN/Creatinine Ratio (7 - 25 %) 24.6 Glucose Cancelled Calcium Cancelled Phosphorus Cancelled Magnesium Cancelled Total Bilirubin Cancelled AST Cancelled ALT Cancelled Albumin Cancelled Toxicology Urine Opiates Screen (>2000 NG/ML) < 100.00 Methadone Screen (>300 NG/ML) 43 Barbiturate Screen (>200 NG/ML) < 60 Ur Phencyclidine Scrn (>25 NG/ML) < 6.00 Amphetamines Screen (>1000 NG/ML) < 100 U Benzodiazepines Scrn (>200 NG/ML) < 85 Urine Cocaine Screen (>300 NG/ML) > 1000 H Urine Cannabis Screen (>50 NG/ML) > 80.00 H Urines Urinalysis LIGHT H Urine Color (YEL,AMB,STR) YEL Urine Clarity (CLEAR) CLEAR Urine pH (5.0 - 8.0) 6.0 Ur Specific [place] (1.001 - 1.035) 1.020 Urine Protein (NEG,<30 MG/DL) TRACE H Urine Ketones (NEG) >=80 Urine Nitrite (NEG) NEG Urine Bilirubin (NEG) NEG Urine Urobilinogen (0.1 - 1.0 EU/dl) 0.2 Ur Leukocyte Esterase (NEG) NEG Ur Microscopic SEDIMENT EXAMINED Urine RBC (0 - 5 /HPF) FEW H Urine WBC (0 - 2 /HPF) RARE Ur Epithelial Cells (NONE,FEW) RARE Urine Bacteria (NEG/NONE) FEW H Hyaline Casts (0/LPF) RARE H Granular Casts (NONE /LPF) RARE H Urine Hemoglobin (NEG) TRACE-INTACT Urine Glucose (N MG/DL) >=1000 H 10/25 1410 Chemistry Sodium (137 - 145 mmol/L) 132 L Potassium (3.5 - 5.1 mmol/L) 6.0 *H Chloride (98 - 107 mmol/L) 104 Carbon Dioxide (22 - 30 mmol/L) 8 *L Anion Gap (5 - 16) 20 H BUN (7 - 17 mg/dL) 40 H Creatinine (0.5 - 1.0 mg/dL) 1.5 H Estimated GFR (>60 ml/min) 37 L BUN/Creatinine Ratio (7 - 25 %) 26.7 H Glucose (65 - 99 mg/dL) 607 *H Calcium (8.4 - 10.2 mg/dL) 8.1 L Magnesium (1.6 - 2.3 mg/dL) 1.9 Total Bilirubin (0.2 - 1.3 mg/dL) 0.7 AST (14 - 36 U/L) 20 ALT (9 - 52 U/L) 33 Alkaline Phosphatase (<127 U/L) 123 Troponin I (< 0.11 ng/ml) 0.02 Total Protein (6.3 - 8.2 g/dL) 6.0 L Albumin (3.5 - 5.0 g/dL) 3.6 Globulin (1.9 - 4.2 gm/dL) 2.4 Albumin/Globulin Ratio (1.1 - 2.2 %) 1.5 Lipase (23 - 300 U/L) 73 Coagulation PT (9.4 - 12.5 SEC) 11.6 INR (0.90 - 1.19) 1.11 APTT (25 - 37 SEC) 31 Toxicology Serum Alcohol (<10 MG/DL) < 10.0 Acetone Level (NEGATIVE) POSITIVE AT 1:8 DIL 10/25 1320 Blood Gas Bicarbonate Actual (22 - 26 MEQ/L) 5 L Mixed VBG pH (7.31 - 7.41 PH) 7.14 L Mixed VBG pCO2 (41 - 51 TORR) 15 L Mixed VBG O2 Saturation (35 - 45 TORR) 51 H Carboxyhemoglobin (1.5 - 5.0 %) 0.1 L O2 Concentration % RA O2 Delivery Method RA Hematology CBC w Diff MAN DIFF ORDERED WBC (4.8 - 10.8 /CUMM) 22.0 H RBC (4.20 - 5.40 /CUMM) 4.20 Hgb (12.0 - 16.0 G/DL) 12.5 Hct (37 - 47 %) 38.1 MCV (81.0 - 99.0 FL) 90.7 MCH (27.0 - 31.0 PG) 29.9 RDW (11.5 - 14.5 %) 13.6 Plt Count (130 - 400 /CUMM) 292 MPV (7.4 - 10.4 FL) 9.7 Gran % (42.2 - 75.2 %) 92.0 H Lymphocytes % (20.5 - 51.1 %) 4.6 L Monocytes % (1.7 - 9.3 %) 3.2 Eosinophils % (0 - 5 %) 0 Basophils % (0.0 - 2.0 %) 0.2 Absolute Granulocytes (1.4 - 6.5 /CUMM) 20.2 H Segmented Neutrophils (42.2 - 75.2 %) 91 H Band Neutrophils (0.0 - 5.0 %) 5 Absolute Lymphocytes (1.2 - 3.4 /CUMM) 1.0 L Lymphocytes (20.5 - 51.1 %) 3 L Monocytes (1.7 - 9.3 %) 1 L Absolute Monocytes (0.10 - 0.60 /CUMM) 0.7 H Absolute Eosinophils (0.0 - 0.7 /CUMM) 0 Absolute Basophils (0.0 - 0.2 /CUMM) 0 Platelet Estimate (ADEQUATE) ADEQUATE Normocytic RBCs VERIFIED Normochromic RBCs VERIFIED PUBS MCHC (33.0 - 37.0 G/DL) 32.9 L Miscellaneous Phlebotomy Draw Site LAC Assessment/Plan Assessment/Plan Patient has had history of diabetes type 1 , hypopituitarism, secondary adrenal insufficiency and secondary hypothyroidism, drug abuse, wasadmitted for DKA. management: 1, recommend hydrocortisone 50 mg iv every 8 hours for now; 2. recommend Levothyroxine 50 mcg po daily starting tomorrow; 3. continue insulin drip; monitor FSG every one hour; 4. recommend add K to IVF as her repeat K is down to 4. 5. continue monitoring electrolytes every 3-4 hours; adjust her IVF accordingly; 6. monitor In and out; 7. add dexatrose to her IVF when her glucose level is less than 250. please call if there are any questions. will follow. Consult Acknowledgment - Thank you for your consult request.
--- NOTE | 2016-10-25 17:06 | NUR ---
PT ADMITTED TO ICU, ROOMAL REPORT GIVEN TO BREANN GILLESPIE ALL V.S.S. CLINICAL STATUS UNCHANGED. PT READY FOR TRANSFER
--- NOTE | 2016-10-25 18:19 | CT SCAN REPORT ---
EXAMINATION: CT ABDOMEN AND PELVIS WITHOUT CONTRAST CLINICAL INFORMATION: Abdominal pain, nausea, vomiting. COMPARISON: 01/02/2015. TECHNIQUE: Contiguous axial thin section helical images of the abdomen and pelvis were performed without oral or IV contrast. The data set was reformatted in the coronal and sagittal planes and reviewed on an independent workstation. DLP: 299 mGy-cm. FINDINGS: There is mild bibasilar atelectasis. The visualized lung bases are otherwise clear. The visualized portions of the heart are unremarkable. There is a small hiatal hernia. The liver is of normal size and attenuation without focal lesions nor intrahepatic biliary ductal dilation. A normal gallbladder is identified. There is no wall thickening or discernible pericholecystic fluid. The spleen, pancreas, adrenal glands are unremarkable. Both kidneys are of normal size and attenuation without hydronephrosis or nephrolithiasis. There is no abdominal free fluid. There is neither mesenteric nor retroperitoneal lymphadenopathy. Normal unopacified loops of small and large bowel are identified. A normal appendix is identified. There is no pelvic free fluid. A Faria catheter is in place. The urinary bladder is otherwise unremarkable. There is neither pelvic nor inguinal lymphadenopathy. Bone windows: Neither sclerotic nor lytic bone lesions are identified. There are bilateral L5 pars defects with mild grade 1 anterolisthesis of L5 in relation to L4 and S1. IMPRESSION: No evidence for acute abdominal or pelvic inflammatory or infectious processes. Neither hydronephrosis nor nephrolithiasis. Small hiatal hernia. Mild bilateral L5 pars defects with mild grade 1 anterolisthesis of L5 in relation to S1.
--- NOTE | 2016-10-25 18:36 | NUR ---
RECIEVED PT FROM ER AT 1800, S/P CT SCAN. PT IS LETHARGIS, ORIENTED TO SELF AND PLACE. 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 TEMP 99.7. PT C/O NAUSEA, GIVEN ZOFRAN 4MG X 1. PT SATING 100% ON RA. LUNGS CLR. ABDOMEN SOFT, NON TENDER. DELA CRUZ INSITU W CLR YELLOW URINE PRESENT. SKIN INTACT W THE EXCLUSION OF SOME SCATTERED ABRASIONS AND SCRATCHES. 1840 BS 253. PER MD, INSULIN GTT TITRATED DOWN TO 2MG PER HR.
--- NOTE | 2016-10-25 19:58 | NUR ---
ICU/LACTIC AND BC X 1 OBTAINED AND SENT TO LAB. PT GIVEN PO MEDS W SIPS OF WATER, OK PER DR BOLTON. RECTAL TEMP OBTAINED; 100.2. AWARE.
[2016-10-26] VITALS: BP 110/60
--- NOTE | 2016-10-26 00:45 | NUR ---
PT AWAKE AND ALERT, DENIES PAIN AT THIS TIME.NSR 70'S, MANUAL BP 110/60. SATURATION 96% ON RA, LUNGS SOUND CLEAR. ON INSULIN GTT AT 1UNIT, ACCUCHECK 196. D51/2NS + 20MEQ KCL AT 200ML/H. ABDOMEN SOFT, HYPOACTIVE BS. DELA CRUZ IN PLACE, ADEQUATE UO.
[2016-10-26 04:39] LABS: ABSOLUTE BASOPHIL COUNT 0 /CUMM (0.0-0.2); ABSOLUTE EOSINOPHIL COUNT 0 /CUMM (0.0-0.7); ABSOLUTE GRANULOCYTE CT 11.5 /CUMM (1.4-6.5); ABSOLUTE LYMPH COUNT 0.6 /CUMM (1.2-3.4); ABSOLUTE MONOCYTE COUNT 0.3 /CUMM (0.10-0.60); BASOPHIL % 0 % (0.0-2.0); EOSINOPHIL % 0 % (0-5); GRANULOCYTE % 92.3 % (42.2-75.2); MEAN CORPUSCULAR HGB 29.4 PG (27.0-31.0); MEAN PLATELET VOLUME 9.3 FL (7.4-10.4); PLATELET COUNT 237 /CUMM (130-400); RBC DISTRIBUTION WIDTH 13.4 % (11.5-14.5); RED BLOOD CELL CT 3.28 /CUMM (4.20-5.40); WHITE BLOOD CELL COUNT 12.4 /CUMM (4.8-10.8)
[2016-10-26 04:46] LABS: HEMATOCRIT 29.2 % (37-47)
--- NOTE | 2016-10-26 07:28 | NUR ---
Received patient, sleepy, arousable, oriented. Resting comfortably. Denies pain/nausea/vomiting. States she has no appetite. NSR on the lunchroom monitor 70s, FNO=[id number]. No chest pain. On room air, lungs clear, satting 96%, denies shortness of breath. D5-1/2 w/ 20 meq K @ 200 mls/hr running with insulin gtt at 1 u/hr through #20 pre hosp IV in the right foot. Site is [facility]. Q1 hour accu-checks. Abd soft/nontender, hypoactive bowel sounds. Faria in place draining clear/straw urine. Given emotional reassurance, safety maintained.
--- NOTE | 2016-10-26 07:29 | Admission Certification ---
Admission Certification Certification Statement - As attending physician, I certify that at the time of - admission, based on clinical presentation, severity of - symptoms, need for further diagnostic testing and - therapeutic interventions, and risk of adverse outcomes - without in-hospital treatment, in my clinical assessment, - this patient requires an acute hospital stay for a minimum - of two nights or longer. I have also considered psychsocial - factors such as support system, advanced age, financial - issues, cognitive issues, and failed out-patient treatments, - past re-admission history, safety of patient, and lack of - compliance as applicable. Specific rationale supporting this admission is: DKA, insulin drip, CRCU needed for q 1 hour blood sugars.
--- NOTE | 2016-10-26 07:42 | PN- Resident CRCU ---
MANINDER BONDS,ISSDIL 10/26/16 0742: Subjective HPI/CRCU Issues: Afebrile, hemodynamically stable, saturating well on room air, and was no acute overnight events. laying in bed complaining of nausea that responded well to Zofran. She denies any other current active complaints. 24 Hour Events: Tmax: 99.2 HR: 74-98 but mainly on the 70s BP:85/54-124/75 I/Oa:2424/1310 positive balance Objective Vital Signs & I&O Last 8 Hrs of Vitals and I&O: Vital Signs Date Time Temp Pulse Resp B/P B/P Pulse O2 O2 Flow FiO2 Mean Ox Delivery Rate 10/26 1006 70 120/68 10/26 1006 70 120/68 10/26 0800 100 Room Air Room Air 10/26 0800 71 16 100 Room Air Room Air 10/26 0400 99 Room Air 10/26 0000 Room Air 10/26 0000 98.5 79 16 110/60 96 Room Air 10/25 2227 88 110/68 10/25 2000 98 Room Air 10/25 1729 96.5 101 18 134/77 96 10/25 1632 98.7 99 22 147/76 99 Room Air 10/25 1535 97 21 142/74 98 Room Air 10/25 1444 97.7 108 20 147/76 95 Room Air 10/25 1320 97 Room Air 10/25 1318 97.2 105 22 152/105 99 Room Air Intake & Output 10/26 1600 10/26 0800 10/26 0000 Intake Total 1886 540 Output Total 910 400 Balance 976 140 Intake, IV 1886 540 Intake, Oral 0 Number 0 Bowel Movements Output, Urine 910 400 Patient 63.503 kg Weight Weight Reported by Patient Measurement Method Exam General Appearance: well developed/nourished, no apparent distress, alert, awake , comfortable Head: atraumatic, normal appearance Cardiovascular: regular rate/rhythm Gastrointestinal: soft, non-tender Extremities: no edema Current Medications: Current Medications Sig/Maximus Start time Last Medication Dose Route Stop Time Status Admin Acetaminophen 650 MG Q6P PRN 10/25 1745 AC PO Acetaminophen 1,000 MG Q6P PRN 10/25 1745 AC IV Aspirin 81 MG DAILY 10/26 1000 AC 10/26 PO 1006 Atorvastatin Calcium 80 MG 1700 10/26 1700 AC PO Carvedilol 6.25 MG BID 10/25 2200 AC 10/26 PO 1006 Clopidogrel Bisulfate 75 MG DAILY 10/25 1802 AC 10/26 PO 1006 Escitalopram Oxalate 10 MG DAILY 10/26 1121 AC PO Gabapentin 800 MG TID 10/26 1000 AC 10/26 PO 1006 Heparin Sodium 5,000 UNIT Q8 10/25 2200 AC 10/26 (Porcine) SC 0512 Hydrocortisone 25 MG BID 10/26 2200 AC Sodium Succinate IV Hydrocortisone 50 MG TID 10/26 1600 CAN Sodium Succinate IV Hydrocortisone 25 MG BID 10/26 1000 DC 10/26 Sodium Succinate IV 1011 Hydrocortisone 50 MG Q8 10/25 1527 DC 10/26 Sodium Succinate IV 0511 Insulin Aspart 0 Q4 10/26 1000 AC SC Insulin Detemir 8 UNITS BID 10/26 1000 AC 10/26 SC 1011 Insulin Human Regular 2 UNITS ONCE ONE 10/26 1045 DC 10/26 SC 10/26 1046 1100 Insulin Human Regular 100 UNIT ONCE ONE 10/25 1400 DC 10/25 Sodium Chloride 100 ML IV 10/25 1401 1514 Levothyroxine Sodium 0.05 MG DAILY AC 10/26 0816 AC 10/26 PO 1007 Levothyroxine Sodium 0.05 MG ONCE ONE 10/25 1815 DC 10/25 PO 10/25 1816 1927 Lisinopril 5 MG DAILY 10/26 1000 AC 10/26 PO 1006 Morphine Sulfate 2 MG Q4P PRN 10/25 1745 AC 10/25 IV 2234 Ondansetron HCl 4 MG Q6P PRN 10/25 1630 AC 10/26 IV 0743 Ondansetron HCl 4 MG ONCE ONE 10/25 1415 DC 10/25 IV 10/25 1416 1413 Ondansetron HCl 0 .STK-MED ONE 10/25 1413 DC .ROUTE Ondansetron HCl 4 MG ONCE ONE 10/25 1330 DC 10/25 IV 10/25 1331 1327 Ondansetron HCl 0 .STK-MED ONE 10/25 1319 DC .ROUTE Potassium Chloride 20 MEQ Q8H 10/25 1845 AC 10/26 Dextrose/Sodium 1,000 ML IV 0230 Chloride Potassium Chloride 20 MEQ 200 MLS/HR 10/25 1730 CAN IV Promethazine HCl 50 MG ONCE ONE 10/25 2100 CAN IV 10/25 2101 Promethazine HCl 12.5 MG ONCE ONE 10/25 2100 DC IV 10/25 2101 Sodium Chloride 1,000 ML .Q5H 10/25 1630 DC 06/12 IV 1927 Sodium Chloride 1,000 ML BOLUS ONE 10/25 1615 DC 06/12 IV 06/12 1714 1629 Sodium Chloride 1,000 ML BOLUS ONE 10/25 1400 DC 06/12 IV 06/12 1459 1404 Sodium Chloride 1,000 ML BOLUS ONE 10/25 1400 DC 06/12 IV / 1459 1446 Sodium Chloride 1,000 ML BOLUS ONE 10/25 1315 DC 06/12 IV / 1414 1318 Sodium Chloride 1,000 ML BOLUS ONE 10/25 1315 DC 06/ IV 10/25 1414 1358 Impression/Plan Impression/Problem List Impression: Respiratory * Not in any respiratory distress * Current active smoker, no COPD diagnosis. * CXR at admission within normal range, no acute Cardiopulmonary findings. * Leukocytosis improved since admission, likely reactive * Patient in non-anion gap metabolic acidosis, compensated with initial respiratory alkalosis as the patient was in respiratory distress with quick shallow breaths,however currently stable and back to normal. * Continue to monitor oxygen keep oxygen saturation greater than 92%. Infectious Disease Leucocytosis reactive * Leukocytosis most likely reactive wants, no symptom or signs suggestive of infection Cardiology H/o CAD s/p drug eluting stent placement ( 2014) Sinus tachycardia most like 2/2 to dehydration * Ct Aspirin * Ct Statin * Ct Plavix * Ct Coreg * Last echo in 2016, 03/09/2016, showed EF greater than 60%, no diastolic dysfunction, no wall motion abnormalities. * ACS was ruled out Hematology * Stable H&H Metabolic AGMA 2/2 to DKA hypopituitarism secondary hyperthyroidism and adrenal insufficiency Hyperkalemia on admission. * Potassium is 4.2 this a.m. -As per key sander * Decrease IV fluid to 125 mL per hour * Decrease hydrocortisone to 25 mg IV twice a day * Restart levothyroxine 50 MCG daily * Restart BEP later today * Start NovoLog color every 4 hours details In the order. * Ct Accu check every hour Alimentary * CC-2 * We'll DC Zofran for nausea and start using Tigan because of prolonged QT * Last QT is 490 Neurological/psychiatric * cocaine, marijuana positive on urine toxicology. * IV Ativan when necessary for cocaine withdrawal, if seems to be withdrawing, currently doesnt seem to be withdrawing. * patient alert, oriented but lethargic. * Patient reviews the psych evaluation * We will continue the Escitalopram 10 mg daily starting tomorrow given the prolonged QT today secondary to Zofran Current active smoker drug abuser : smoking cessation couselling, cocaine abuse counselling. Doctors : PCP : Dr Melissa Mukherjee Endo : Dr. Deshpande Cardio : Dr. Vázquez. Carbohydrate 2 DVT prophylaxis mechanical and pharmacological Full code Problem List: 1. DKA (diabetic ketoacidoses) Pain Ratin Tomorrow's Labs & Rationales: CBC and BEP Plan DVT/Prophylaxis: mechanical, pharmacological DANIELITO BONDS,Mikey RIZZO 10/26/16 0836: Attending MD Review Statement Attending Sign Off Attending Cosign Statement: I have not: examined this patient, reviewed aval EMR data, personally reviewd images, discussd w/resident/PA/TRIPOLER, discussed mgmt plan w/pt, agreed w/resident/ PA/TRIPOLER.
--- NOTE | 2016-10-26 08:45 | PN- Diabetes ---
Assessment/Plan Assessment: Patient has had history of diabetes type 1 , hypopituitarism, secondary adrenal insufficiency and secondary hypothyroidism, drug abuse, was admitted for DKA. The cause of DKA most likely is due to noncompliance of insulin ? because of the cost. However, drug screening was postive for cocaine. She was treated with IVF and insulin drip. Physically she feels better; however, she was upset this morning and admitted that she did have suicidal ideation. Currently she is on D51/2 NS with 20 meq of KCL at 200 ml/hour, insulin drip one units per hour and the most recent FSG was 199. She was put on stress dose of steroid yesterday-- hydrocortisone 50 mg iv every 8 hours. Plan: 1. DM type 1/DKA improving ---decrease IVF to 125 ml/hour; ---start Levemir 8 units twice a day and D/C insulin drip in one hour after she receives first dose of Levemir; ---start Novolog coverage every 4 hours-- detail see the insulin order sheet; ---monitor electrolytes later this afternoon; ---when her po intake impropves, please inform me and then I will adjust her insulin regimen accordingly; 2. decrease hydrocortisone to 25 mg iv every 12 hours today; 3. restart Levothyroxine 50 mcg daily; 4. recommend psych consult. will follow Inpatient Diabetes Orders Every 4 Hours: Bolus Insulin: Novolog < 80 mg/dl: no coverage 80-100 mg/dl: no coverage 101-120 mg/dl: 2 units 121-150 mg/dl: 2 units 151-200 mg/dl: 3 units 201-250 mg/dl: 5 units 251-300 mg/dl: 7 units 301-350 mg/dl: 9 units 351-400 mg/dl: 11 units > 400 mg/dl: 13 units Subjective Subjective: she was upset this morning and feels stressed. Objective Last 24 Hrs of Vital Signs/I&O Vital Signs Date Time Temp Pulse Resp B/P B/P Pulse O2 O2 Flow FiO2 Mean Ox Delivery Rate 10/26 0800 100 Room Air Room Air 10/26 0800 71 16 100 Room Air Room Air 10/26 0400 99 Room Air 10/26 0000 Room Air 10/26 0000 98.5 79 16 110/60 96 Room Air 10/25 2227 88 110/68 06/12 2000 98 Room Air 10/25 1729 96.5 101 18 134/77 96 10/25 1632 98.7 99 22 147/76 99 Room Air 10/25 1535 97 21 142/74 98 Room Air 10/25 1444 97.7 108 20 147/76 95 Room Air 10/25 1320 97 Room Air 10/25 1318 97.2 105 22 152/105 99 Room Air Intake & Output 10/26 1600 10/26 0800 10/26 0000 Intake Total 1886 540 Output Total 910 400 Balance 976 140 Intake, IV 1886 540 Intake, Oral 0 Number 0 Bowel Movements Output, Urine 910 400 Patient 140 lb Weight Weight Reported by Patient Measurement Method Findings Pertinent Lab/Hi Results: Laboratory Tests 10/26 10/26 10/26 10/25 0400 0357 0000 1900 Blood Gas Bicarbonate Actual (22 - 26 MEQ/L) 9 L Mixed VBG pH (7.31 - 7.41 PH) 7.30 L Mixed VBG pCO2 (41 - 51 TORR) 19 L Mixed VBG O2 Saturation (35 - 45 TORR) 44 Carboxyhemoglobin (1.5 - 5.0 %) 0.3 L O2 Concentration % RA Chemistry Sodium (137 - 145 mmol/L) 135 L 135 L Potassium (3.5 - 5.1 mmol/L) 4.2 4.0 Chloride (98 - 107 mmol/L) 111 H 112 H Carbon Dioxide (22 - 30 mmol/L) 16 L 15 L Anion Gap (5 - 16) 7 9 BUN (7 - 17 mg/dL) 21 H 24 H Creatinine (0.5 - 1.0 mg/dL) 0.8 0.9 Estimated GFR (>60 ml/min) > 60 > 60 Glucose (65 - 99 mg/dL) 174 H 180 H Lactic Acid (0.7 - 2.1 mmol/L) 1.4 Calcium (8.4 - 10.2 mg/dL) 7.5 L 7.4 L Phosphorus (2.5 - 4.5 mg/dL) 1.8 L 1.7 L Magnesium (1.6 - 2.3 mg/dL) 1.7 1.7 Total Bilirubin (0.2 - 1.3 mg/dL) 0.5 0.5 AST (14 - 36 U/L) 19 19 ALT (9 - 52 U/L) 33 28 Albumin (3.5 - 5.0 g/dL) 2.9 L 3.0 L Hematology CBC w Diff NO MAN DIFF REQ WBC (4.8 - 10.8 /CUMM) 12.4 H RBC (4.20 - 5.40 /CUMM) 3.28 L Hgb (12.0 - 16.0 G/DL) 9.6 L Hct (37 - 47 %) 29.2 L MCV (81.0 - 99.0 FL) 89.0 MCH (27.0 - 31.0 PG) 29.4 RDW (11.5 - 14.5 %) 13.4 Plt Count (130 - 400 /CUMM) 237 MPV (7.4 - 10.4 FL) 9.3 Gran % (42.2 - 75.2 %) 92.3 H Lymphocytes % (20.5 - 51.1 %) 5.1 L Monocytes % (1.7 - 9.3 %) 2.6 Eosinophils % (0 - 5 %) 0 Basophils % (0.0 - 2.0 %) 0 L Absolute Granulocytes (1.4 - 6.5 /CUMM) 11.5 H Absolute Lymphocytes (1.2 - 3.4 /CUMM) 0.6 L Absolute Monocytes (0.10 - 0.60 /CUMM) 0.3 Absolute Eosinophils (0.0 - 0.7 /CUMM) 0 Absolute Basophils (0.0 - 0.2 /CUMM) 0 PUBS MCHC (33.0 - 37.0 G/DL) 33.0 Miscellaneous Phlebotomy Draw Site VENOUS 10/25 10/25 10/25 10/25 10/25 1900 1810 1810 1640 1610 Chemistry Sodium (137 - 145 mmol/L) 137 Cancelled Cancelled 138 Cancelled Potassium (3.5 - 5.1 mmol/L) 4.0 Cancelled Cancelled 4.0 Cancelled Chloride (98 - 107 mmol/L) 110 H Cancelled Cancelled 109 H Cancelled Carbon Dioxide (22 - 30 mmol/L) 13 L Cancelled Cancelled 10 L Cancelled Anion Gap (5 - 16) 13 Cancelled Cancelled 19 H Cancelled BUN (7 - 17 mg/dL) 29 H Cancelled Cancelled 32 H Cancelled Creatinine (0.5 - 1.0 mg/dL) 1.1 H Cancelled Cancelled 1.3 H Cancelled Estimated GFR (>60 ml/min) 53 L 43 L BUN/Creatinine Ratio (7 - 25 %) 26.4 H Cancelled 24.6 Glucose Cancelled Cancelled Calcium Cancelled Cancelled Phosphorus Cancelled Cancelled Magnesium Cancelled Cancelled Total Bilirubin Cancelled Cancelled AST Cancelled Cancelled ALT Cancelled Cancelled Albumin Cancelled Cancelled 10/25 1502 Toxicology Urine Opiates Screen (>2000 NG/ML) < 100.00 Methadone Screen (>300 NG/ML) 43 Barbiturate Screen (>200 NG/ML) < 60 Ur Phencyclidine Scrn (>25 NG/ML) < 6.00 Amphetamines Screen (>1000 NG/ML) < 100 U Benzodiazepines Scrn (>200 NG/ML) < 85 Urine Cocaine Screen (>300 NG/ML) > 1000 H Urine Cannabis Screen (>50 NG/ML) > 80.00 H Urines Urinalysis LIGHT H Urine Color (YEL,AMB,STR) YEL Urine Clarity (CLEAR) CLEAR Urine pH (5.0 - 8.0) 6.0 Ur Specific [place] (1.001 - 1.035) 1.020 Urine Protein (NEG,<30 MG/DL) TRACE H Urine Ketones (NEG) >=80 Urine Nitrite (NEG) NEG Urine Bilirubin (NEG) NEG Urine Urobilinogen (0.1 - 1.0 EU/dl) 0.2 Ur Leukocyte Esterase (NEG) NEG Ur Microscopic SEDIMENT EXAMINED Urine RBC (0 - 5 /HPF) FEW H Urine WBC (0 - 2 /HPF) RARE Ur Epithelial Cells (NONE,FEW) RARE Urine Bacteria (NEG/NONE) FEW H Hyaline Casts (0/LPF) RARE H Granular Casts (NONE /LPF) RARE H Urine Hemoglobin (NEG) TRACE-INTACT Urine Glucose (N MG/DL) >=1000 H 10/25 1410 Chemistry Sodium (137 - 145 mmol/L) 132 L Potassium (3.5 - 5.1 mmol/L) 6.0 *H Chloride (98 - 107 mmol/L) 104 Carbon Dioxide (22 - 30 mmol/L) 8 *L Anion Gap (5 - 16) 20 H BUN (7 - 17 mg/dL) 40 H Creatinine (0.5 - 1.0 mg/dL) 1.5 H Estimated GFR (>60 ml/min) 37 L BUN/Creatinine Ratio (7 - 25 %) 26.7 H Glucose (65 - 99 mg/dL) 607 *H Lactic Acid (0.7 - 2.1 mmol/L) 2.5 H Calcium (8.4 - 10.2 mg/dL) 8.1 L Magnesium (1.6 - 2.3 mg/dL) 1.9 Total Bilirubin (0.2 - 1.3 mg/dL) 0.7 AST (14 - 36 U/L) 20 ALT (9 - 52 U/L) 33 Alkaline Phosphatase (<127 U/L) 123 Troponin I (< 0.11 ng/ml) 0.02 Total Protein (6.3 - 8.2 g/dL) 6.0 L Albumin (3.5 - 5.0 g/dL) 3.6 Globulin (1.9 - 4.2 gm/dL) 2.4 Albumin/Globulin Ratio (1.1 - 2.2 %) 1.5 Lipase (23 - 300 U/L) 73 Coagulation PT (9.4 - 12.5 SEC) 11.6 INR (0.90 - 1.19) 1.11 APTT (25 - 37 SEC) 31 Toxicology Serum Alcohol (<10 MG/DL) < 10.0 Acetone Level (NEGATIVE) POSITIVE AT 1:8 DIL 10/25 1320 Blood Gas Bicarbonate Actual (22 - 26 MEQ/L) 5 L Mixed VBG pH (7.31 - 7.41 PH) 7.14 L Mixed VBG pCO2 (41 - 51 TORR) 15 L Mixed VBG O2 Saturation (35 - 45 TORR) 51 H Carboxyhemoglobin (1.5 - 5.0 %) 0.1 L O2 Concentration % RA O2 Delivery Method Hematology CBC w Diff MAN DIFF ORDERED WBC (4.8 - 10.8 /CUMM) 22.0 H RBC (4.20 - 5.40 /CUMM) 4.20 Hgb (12.0 - 16.0 G/DL) 12.5 Hct (37 - 47 %) 38.1 MCV (81.0 - 99.0 FL) 90.7 MCH (27.0 - 31.0 PG) 29.9 RDW (11.5 - 14.5 %) 13.6 Plt Count (130 - 400 /CUMM) 292 MPV (7.4 - 10.4 FL) 9.7 Gran % (42.2 - 75.2 %) 92.0 H Lymphocytes % (20.5 - 51.1 %) 4.6 L Monocytes % (1.7 - 9.3 %) 3.2 Eosinophils % (0 - 5 %) 0 Basophils % (0.0 - 2.0 %) 0.2 Absolute Granulocytes (1.4 - 6.5 /CUMM) 20.2 H Segmented Neutrophils (42.2 - 75.2 %) 91 H Band Neutrophils (0.0 - 5.0 %) 5 Absolute Lymphocytes (1.2 - 3.4 /CUMM) 1.0 L Lymphocytes (20.5 - 51.1 %) 3 L Monocytes (1.7 - 9.3 %) 1 L Absolute Monocytes (0.10 - 0.60 /CUMM) 0.7 H Absolute Eosinophils (0.0 - 0.7 /CUMM) 0 Absolute Basophils (0.0 - 0.2 /CUMM) 0 Platelet Estimate (ADEQUATE) ADEQUATE Normocytic RBCs VERIFIED Normochromic RBCs VERIFIED PUBS MCHC (33.0 - 37.0 G/DL) 32.9 L Miscellaneous Phlebotomy Draw Site LAC
--- NOTE | 2016-10-26 09:06 | Incdntl Nt Psy ---
Incidental Note Notation: 51-year-old female known to this service presents to [facility] emergency department on 10/25/2016 in DKA due to not taking her insulin. She cited cost is a barrier. Medical team requested consult for depression, she has presented as tearful to staff multiple times, and substance abuse issues. S: Upon introducing self the patient patient states "I don't want you." Agrees to talk to this headline writer only briefly. States she feels she "needs nothing," in terms of help and that there is "nothing," we can do to help her with her current illness. O: Mental Status Exam Presentation/Appearance: Uncooperative with evaluation. Hospital garb. Lying in bed. Orientation: Grossly oriented Sensorium: Somnolent Eye contact: Actively avoided Affect: Flat Mood: Appears depressed Depression: Denies Anxiety: Denies Thought Content: - Denies SI/HI, AH/VH, PI. States and also believes they will not kill themselves. Thought Process: Grossly linear Associations: Unable to assess Speech: Minimal and soft Judgment: Unable to assess Insight: Unable to assess Cognition: Memory: Unable to assess Attention/Concentration: Grossly intact Fund of Knowledge: Unable to assess Abstractions:Unable to assess MMSE: Unable to assess A: Patient with a known history of polysubstance abuse and MDD appears to be quite depressed in the context of medical hospitalization. Unfortunately without patient's consent cannot treat her psychiatrically. P: - Please contact psychiatry if patient consents to psychiatric consult. Thank you for including psychiatry in this case we will sign off for now.
[2016-10-26 16:00] VITALS: BP 134/86
--- NOTE | 2016-10-26 19:17 | NUR ---
Patient having occaisonal weepy/anxious episodes throughout the day. This RN spoke with patient and her boyfriend. Patient states she does not have health insurance which is why she cannot pay for her insulin and other prescriptions [id number]. Patient wanting to apply for state insurance. Informed Dr. Ontiveros and social work consult placed. Patient is reassured. Continuing to monitor.
[2016-10-27] VITALS: BP 102/64
[2016-10-27 05:17] LABS: ABSOLUTE BASOPHIL COUNT 0 /CUMM (0.0-0.2); ABSOLUTE EOSINOPHIL COUNT 0.1 /CUMM (0.0-0.7); ABSOLUTE GRANULOCYTE CT 8.6 /CUMM (1.4-6.5); ABSOLUTE LYMPH COUNT 1.4 /CUMM (1.2-3.4); ABSOLUTE MONOCYTE COUNT 0.5 /CUMM (0.10-0.60); BASOPHIL % 0.2 % (0.0-2.0); GRANULOCYTE % 80.9 % (42.2-75.2); HEMATOCRIT 28.2 % (37-47); MEAN CORPUSCULAR HGB 29.5 PG (27.0-31.0); MEAN CORPUSCULAR HGB CONC 33.5 G/DL (33.0-37.0); MEAN PLATELET VOLUME 9.2 FL (7.4-10.4); PLATELET COUNT 196 /CUMM (130-400); RBC DISTRIBUTION WIDTH 13.1 % (11.5-14.5); RED BLOOD CELL CT 3.21 /CUMM (4.20-5.40); WHITE BLOOD CELL COUNT 10.6 /CUMM (4.8-10.8)
--- NOTE | 2016-10-27 07:05 | NUR ---
SHIFT NOTE. PT IS AOX3, PLEASANT, COOPERATIVE, CALM. HR IN NSR 60S-70S. ROOM AIR, NO RESP DISTRESS. DENIED ANY NAUSEA OR PAIN. BLOOD SUGARS STABLE. DELA CRUZ PATENT AND DRAINING CLEAR YELLOW URINE. SKIN INTACT, NO EDEMA. D5 1/2 NS WITH 20MEQ KCL INFUSING INTO #22 IN RW. PT WAS OOB TO BATHROOM WITH 1 ASSIST, SLIGHTLY UNSTEADY. AT 0300 PT'S BP WAS NOTED TO BE 82/50 MANUALLY, SHE WAS AOX3 AND OTHER VSS, NO COMPLAINTS AT THE TIME. PER DR MOFFETT 500CC NS BOLUS GIVEN WITH GOOD EFFECT, BP NOW STABLE. PT OFFERS NO COMPLAINTS. WILL CONTINUE TO CLOSELY MONITOR.
[2016-10-27 08:00] VITALS: BP 140/78
--- NOTE | 2016-10-27 08:02 | PN- Resident CRCU ---
MANINDER BONDS,ISMAIL 10/27/16 0801: Subjective HPI/CRCU Issues: Afebrile, hemodynamically stable, saturating well on room air, and was no acute overnight events. She is laying in bed looks relaxed and comfortable. Patient appetite improved and she tolerates breakfast well. Patient denies any current active complaints Objective Vital Signs & I&O Last 8 Hrs of Vitals and I&O: Intake & Output 10/27 1600 Intake Total Output Total 100 Balance -100 Output, Urine 100 Patient 63.503 kg Weight Exam General Appearance: well developed/nourished, no apparent distress, alert, awake , comfortable Head: atraumatic, normal appearance Respiratory: normal breath sounds, chest non-tender, no respiratory distress, quiet respiration, lungs clear Cardiovascular: regular rate/rhythm Gastrointestinal: normal bowel sounds, soft Extremities: normal inspection, no edema Cranial Nerves: normal speech Current Medications: Current Medications Sig/Maximus Start time Last Medication Dose Route Stop Time Status Admin Acetaminophen 650 MG Q6P PRN 10/25 1745 AC PO Acetaminophen 1,000 MG Q6P PRN 10/25 1745 AC IV Aspirin 81 MG DAILY 10/26 1000 AC 10/27 PO 1055 Atorvastatin Calcium 80 MG 1700 10/26 1700 AC 10/26 PO 1814 Carvedilol 6.25 MG BID 10/25 2200 AC 10/27 PO 1055 Clopidogrel Bisulfate 75 MG DAILY 10/25 1802 AC 10/27 PO 1056 Escitalopram Oxalate 10 MG DAILY 10/26 1121 AC PO Gabapentin 800 MG TID 10/26 1000 AC 10/27 PO 1055 Heparin Sodium 5,000 UNIT Q8 10/25 2200 AC 10/27 (Porcine) SC 0602 Hydrocortisone 5 MG 1700 10/27 1700 AC PO Hydrocortisone 15 MG 0800 10/27 0915 AC 10/27 PO 1141 Hydrocortisone 25 MG BID 10/26 2200 DC 10/26 Sodium Succinate IV 2208 Insulin Aspart 0 TIDAC/HS 10/27 1200 AC SC Insulin Aspart 0 Q4 10/26 1000 DC 10/27 SC 0602 Insulin Detemir 6 UNITS BID 10/27 1000 AC 10/27 SC 1105 Insulin Detemir 8 UNITS BID 10/26 1000 DC 10/26 SC 2207 Levothyroxine Sodium 0.05 MG DAILY AC 10/26 0816 AC 10/27 PO 0600 Lisinopril 5 MG DAILY 10/26 1000 AC 10/27 PO 1056 Magnesium Sulfate 1 GM ONCE ONE 10/27 0615 DC Dextrose/Water 100 ML IV 10/27 1014 Morphine Sulfate 2 MG Q4P PRN 10/25 1745 AC 10/25 IV 2234 Ondansetron HCl 4 MG Q6P PRN 10/25 1630 DC 10/26 IV 0743 Potassium Chloride 60 MEQ ONCE ONE 10/27 0930 DC PO 10/27 0931 Potassium Chloride 10 MEQ Q1H 10/27 0615 DC IV 10/27 0716 Potassium Chloride 20 MEQ Q8H 10/25 1845 DC 10/27 Dextrose/Sodium 1,000 ML IV 0359 Chloride Sodium Chloride 500 ML BOLUS ONE 10/27 0330 DC 10/27 IV 10/27 0429 0326 Trimethobenzamide HCl 200 MG TID PRN 10/26 1230 AC IM Impression/Plan Impression/Problem List Impression: Respiratory * Not in any respiratory distress * Current active smoker, no COPD diagnosis. * CXR at admission within normal range, no acute Cardiopulmonary findings. * Leukocytosis improved since admission, likely reactive * Patient was on compensated non-anion gap metabolic acidosis, but now she is back to normal Infectious Disease Leucocytosis reactive * Leukocytosis most likely reactive wants, no symptom or signs suggestive of infection Cardiology H/o CAD s/p drug eluting stent placement ( 2014) Sinus tachycardia most like 2/2 to dehydration * Ct Aspirin * Ct Statin * Ct Plavix * Ct Coreg * Last echo in 2016, 03/09/2016, showed EF greater than 60%, no diastolic dysfunction, no wall motion abnormalities. * ACS was ruled out Hematology * Stable H&H Metabolic AGMA 2/2 to DKA hypopituitarism secondary hyperthyroidism and adrenal insufficiency Hyperkalemia on admission. * Potassium is 3.5 this a.m. * This morning patient can tolerate oral intake -As per bsa/aml compliance officer * Dc IV fluid * Switch IV hydrocortisone to by mouth 15 mg at 8 AM and 5 mg at 4 PM * Continue levothyroxine 50 MCG daily * Recheck BEP daily * Adjust NovoLog to pre-meal and bedtime with a sliding scale as mentioned and patient medication order. * Continue Accu check * Decrease Levemir to 6 units twice a day Alimentary * CC-2 * Continue Tigan for nausea * Last QT is 490 yesterday Neurological/psychiatric * cocaine, marijuana positive on urine toxicology. * IV Ativan when necessary for cocaine withdrawal, if seems to be withdrawing, currently doesnt seem to be withdrawing. * Patient refused psych evaluation * We would beat EKG for QT then start Escitalopram 10 mg daily Current active smoker drug abuser : smoking cessation * couselling, cocaine abuse counselling. Patient is stable and will be downgraded to general medicine floor Carbohydrate 2 DVT prophylaxis mechanical and pharmacological Full code Problem List: 1. DKA (diabetic ketoacidoses) 2. Cocaine abuse 3. Cannabis abuse Pain Ratin Tomorrow's Labs & Rationales: CBC and BEP Plan DVT/Prophylaxis: mechanical, pharmacological Mikey ESTEVES MD 10/27/16 0807: Attending MD Review Statement Attending Sign Off Attending Cosign Statement: I have: reviewed aval EMR data, personally reviewd images, discussd w/resident /PA/LINK KNITTING MACHINE OPERATOR, discussed mgmt plan w/candy, agreed w/resident/PA/LINK KNITTING MACHINE OPERATOR.
--- NOTE | 2016-10-27 08:23 | PN- Diabetes ---
Assessment/Plan Assessment: Patient has had history of diabetes type 1 , hypopituitarism, secondary adrenal insufficiency and secondary hypothyroidism, drug abuse, was admitted for DKA. The cause of DKA most likely is due to noncompliance of insulin ? because of the cost. However, drug screening was postive for cocaine. She was treated with IVF and insulin drip. Physically she felt better; however, she was upset and admitted that she did have suicidal ideation. Psych consult was called; but patient refused to be seen. Currently she is on D51/2 NS with 20 meq of KCL at 125 ml/hour, Levemir 8 units twice a day and Novolog coverage every 4 hours. FSGs were 157, 200, 155, 99, 132 and 113. She has been on stress dose of steroid. Currently she is on Hydrocortisone 25 mg iv twice a day. Her vital signs have been stable. Plan: 1. DM type 1: --- continue the current insulin regimen for now; ---if she eats well for breakfast, please stops IVF and then change insulin regimen to Levemir 6 units twice a day, change Novolog coverage every 4 hours to Novolog coverage before meals and Novolog coverage at bedtime-- detail see the inpatient DM orders. ---monitor FSGs. ---please contact me if there are questions. 2. hypopituitarism: ---continue Levothyroxine 50 mg daily; ---change Hydrocortisone to 15 mg po daily at 8 am and 5 mg po at 4 pm daily. will follow. Inpatient Diabetes Orders Before Each Meal: Bolus Insulin: Novolog < 80 mg/dl: no coverage 80-100 mg/dl: 3 units 101-120 mg/dl: 3 units 121-150 mg/dl: 3 units 151-200 mg/dl: 4 units 201-250 mg/dl: 5 units 251-300 mg/dl: 6 units 301-350 mg/dl: 7 units 351-400 mg/dl: 8 units > 400 mg/dl: 9 units Bedtime: Bolus Insulin: Novolog < 80 mg/dl: no coverage 80-100 mg/dl: no coverage 101-120 mg/dl: no coverage 121-150 mg/dl: no coverage 151-200 mg/dl: no coverage 201-250 mg/dl: no coverage 251-300 mg/dl: 2 units 301-350 mg/dl: 3 units 351-400 mg/dl: 4 units > 400 mg/dl: 5 units Subjective Subjective: She stated that she felt 100% better this morning. Objective Last 24 Hrs of Vital Signs/I&O Vital Signs Date Time Temp Pulse Resp B/P B/P Pulse O2 O2 Flow FiO2 Mean Ox Delivery Rate 10/27 0000 98.6 76 16 102/64 98 Room Air 10/26 2208 72 107/65 10/26 2000 Room Air 10/26 1600 98.0 68 11 134/86 98 Room Air Room Air 10/26 1600 98 Room Air Room Air 10/26 1200 98 Room Air Room Air 10/26 1006 70 120/68 10/26 1006 70 120/68 Intake & Output 10/27 1600 10/27 0800 10/27 0000 Intake Total 1600 1150 Output Total 755 985 Balance 845 165 Intake, IV 1500 1000 Intake, Oral 100 150 Number 1 Bowel Movements Output, Urine 755 985 Findings Pertinent Lab/Hi Results: Laboratory Tests 10/27 10/26 0430 1530 Chemistry Sodium (137 - 145 mmol/L) 139 136 L Potassium (3.5 - 5.1 mmol/L) 3.5 4.0 Chloride (98 - 107 mmol/L) 115 H 109 H Carbon Dioxide (22 - 30 mmol/L) 18 L 18 L Anion Gap (5 - 16) 5 9 BUN (7 - 17 mg/dL) 10 12 Creatinine (0.5 - 1.0 mg/dL) 0.7 0.7 Estimated GFR (>60 ml/min) > 60 > 60 BUN/Creatinine Ratio (7 - 25 %) 17.1 Glucose (65 - 99 mg/dL) 115 H Calcium (8.4 - 10.2 mg/dL) 7.7 L Phosphorus (2.5 - 4.5 mg/dL) 1.2 L Magnesium (1.6 - 2.3 mg/dL) 1.8 Total Bilirubin (0.2 - 1.3 mg/dL) 0.4 AST (14 - 36 U/L) 28 ALT (9 - 52 U/L) 26 Albumin (3.5 - 5.0 g/dL) 2.3 L Hematology CBC w Diff NO MAN DIFF REQ WBC (4.8 - 10.8 /CUMM) 10.6 RBC (4.20 - 5.40 /CUMM) 3.21 L Hgb (12.0 - 16.0 G/DL) 9.5 L Hct (37 - 47 %) 28.2 L MCV (81.0 - 99.0 FL) 88.0 MCH (27.0 - 31.0 PG) 29.5 RDW (11.5 - 14.5 %) 13.1 Plt Count (130 - 400 /CUMM) 196 MPV (7.4 - 10.4 FL) 9.2 Gran % (42.2 - 75.2 %) 80.9 H Lymphocytes % (20.5 - 51.1 %) 13.3 L Monocytes % (1.7 - 9.3 %) 4.6 Eosinophils % (0 - 5 %) 1.0 Basophils % (0.0 - 2.0 %) 0.2 Absolute Granulocytes (1.4 - 6.5 /CUMM) 8.6 H Absolute Lymphocytes (1.2 - 3.4 /CUMM) 1.4 Absolute Monocytes (0.10 - 0.60 /CUMM) 0.5 Absolute Eosinophils (0.0 - 0.7 /CUMM) 0.1 Absolute Basophils (0.0 - 0.2 /CUMM) 0 PUBS MCHC (33.0 - 37.0 G/DL) 33.5
[2016-10-27 12:07] VITALS: BP 124/80
--- NOTE | 2016-10-27 13:34 | NUR ---
Referral received this morning via electronic enrobing machine corder. This patient is a 51 year old female,admitted to the hospital on 10/26/16 with DKA. Reason for referral was "inability to afford her essential diabetic supplies". I met with Mary this am. She was awake and alert; pleasant and engaged in interview. Mary clarifies that she has ALL of her diabetic supplies, but does not have any short acting insulin. Mary had previously been active with [employer]; lost coverage when she was working 2 jobs; and is now only working one job and needs to re-apply for benefits/coverage. Call placed to clinical specialist medical device who reports that she will assist the patient. Patient very grateful for assitance offered; reassurance provided re: insulin upon discharge. Patient appropriately emotional when discussing situation and disappointment in her "situation". Reports she and her significant other get by month by month; is aware of, and has utilized [employer]. Will be able to provide patient with indigent medication coverage if needed upon discharge.
--- NOTE | 2016-10-27 14:30 | NUR ---
Report given to Lori GILLESPIE on . Distribution notified of transfer. Patient aware of new room assignment to [facility].
[2016-10-27 16:03] VITALS: BP 124/86
--- NOTE | 2016-10-27 19:02 | NUR ---
PATIENT ARRIVED TO FLOOR AT APPROX 1500 FROM ICU, DX DKA. A&OX3; LCTA; NO C/O PAIN; +BS; INDEPENDENT WITH SUPERVISION. IV#22 TO RW HEP LOCKED. SAFETY MAINTAINED. NEEDS WITHIN REACH.
[2016-10-27 22:40] VITALS: BP 132/76
--- NOTE | 2016-10-27 22:47 | NUR ---
PT C/O PAIN TO IV SITE, REMOVED. MOLINA WHITE NOTIFIED. F/U TOMORROW WITH NELY PATIENT IS A TOUGH STICK.
[2016-10-28 06:00] VITALS: BP 143/80
--- NOTE | 2016-10-28 07:27 | PN- Housestaff ---
KEY GOINS 10/28/16 0726: Subjective Follow-up For: DKA Leukocytosis Hypopituitarism Complaints: no complaints Subjective: Ms Jones is comofortable. No complaints. She was afebrile overnight. As per the night team, the pts blood sugar dipped to less than 50, and was stable eversince. She was seen by Dr Mahoney, who recommended that the pt be discharged on new dose of hydrocortisone and insulin sliding scale. She also complained of lower extremity swelling after she walked, which is likely dependent edema. Vitals remained stable overngith. Review of Systems Constitutional: Reports: see HPI. Objective Last 24 Hrs of Vital Signs/I&O Vital Signs Date Time Temp Pulse Resp B/P B/P Pulse O2 O2 Flow FiO2 Mean Ox Delivery Rate 10/27 2240 99.1 69 18 132/76 98 Room Air 10/27 2210 69 132/76 10/27 1603 98.9 69 20 124/86 100 Room Air 10/27 1207 98.5 67 20 124/80 97 Room Air 10/27 1055 72 144/80 10/27 0800 98.8 76 18 140/78 98 Room Air Intake & Output 10/28 0800 10/28 0000 10/27 1600 Intake Total 600 800 Output Total 400 Balance 600 400 Intake, Oral 600 800 Number 1 Bowel Movements Output, Urine 400 Patient 140 lb Weight Physical Exam General Appearance: No Acute Distress Skin: No Breakdown Skin Temp/Moisture Exam: Warm/Dry HEENT: Atraumatic, PERRLA, EOMI Neck: Supple, No JVD, No thryomegaly Lymphatic: Cervical nl Cardiovascular: Regular Rate, Normal S1, Normal S2, No Murmurs Lungs: Normal Air Movement Abdomen: Normal Bowel Sounds, Soft, No Tenderness, No Hepatospenomegaly Neurological: Normal Speech, Strength at 5/5 X4 Ext, Normal Tone, Sensation Intact, Cranial Nerves 3-12 NL Extremities: No Clubbing, No Cyanosis, No Edema Vascular: Pulses Symmetrical Current Medications: Current Medications Sig/Maximus Start time Last Medication Dose Route Stop Time Status Admin Acetaminophen 650 MG Q6P PRN 10/25 1745 AC PO Acetaminophen 1,000 MG Q6P PRN 10/25 1745 AC IV Aspirin 81 MG DAILY 10/26 1000 AC 10/27 PO 1055 Atorvastatin Calcium 80 MG 1700 10/26 1700 AC 10/27 PO 1606 Carvedilol 6.25 MG BID 10/25 2200 AC 10/27 PO 2210 Clopidogrel Bisulfate 75 MG DAILY 10/25 1802 AC 10/27 PO 1056 Escitalopram Oxalate 10 MG DAILY 10/26 1121 AC PO Gabapentin 800 MG TID 10/26 1000 AC 10/27 PO 2252 Heparin Sodium 5,000 UNIT Q8 10/25 2200 AC 10/27 (Porcine) SC 2149 Hydrocortisone 5 MG 1700 10/27 1700 AC 10/27 PO 1606 Hydrocortisone 15 MG 0800 10/27 0915 AC 10/27 PO 1141 Hydrocortisone 25 MG BID 10/26 2200 DC 10/26 Sodium Succinate IV 2208 Insulin Aspart 0 TIDAC/HS 10/27 1200 AC 10/27 SC 1638 Insulin Aspart 0 Q4 10/26 1000 DC 10/27 SC 0602 Insulin Detemir 6 UNITS BID 10/27 1000 AC 10/27 SC 2148 Insulin Detemir 8 UNITS BID 10/26 1000 DC 10/26 SC 2207 Levothyroxine Sodium 0.05 MG DAILY AC 10/26 0816 AC 10/27 PO 0600 Lisinopril 5 MG DAILY 10/26 1000 AC 10/27 PO 1056 Magnesium Sulfate 1 GM ONCE ONE 10/27 0615 DC Dextrose/Water 100 ML IV 10/27 1014 Morphine Sulfate 2 MG Q4P PRN 10/25 1745 AC 10/25 IV 2234 Patient Medication 1 ED .STK-MED ONE 10/27 1413 DC Teaching ED 10/27 1414 Potassium Chloride 60 MEQ ONCE ONE 10/27 0930 DC 10/27 PO 10/27 0931 1238 Potassium Chloride 20 MEQ Q8H 10/25 1845 DC 10/27 Dextrose/Sodium 1,000 ML IV 0359 Chloride Trimethobenzamide HCl 200 MG TID PRN 10/26 1230 AC IM Last 24 Hrs of Lab/Hi Results Last 24 Hrs of Labs/Mics: Laboratory Tests 10/28/16 0638: Sodium Pending, Potassium Pending, Chloride Pending, Carbon Dioxide Pending, Anion Gap Pending, BUN Pending, Creatinine Pending, BUN/Creatinine Ratio Pending , Glucose Pending, CBC w Diff Pending, WBC Pending, RBC Pending, Hgb Pending, Hct Pending, MCV Pending, MCH Pending, RDW Pending, Plt Count Pending, MPV Pending, PUBS MCHC Pending Assessment/Plan Assessment: She is an middle aged woman with a hisotry of type 1 diabetes(dx'ed 13 yrs ago w / h/o non compliance to insulin), secondary adreanl insufficiency, secondary hypothyrodism was managed for DKA in the ICU. Blood sugars, and acidosis normalized. She was transfered to the general medicine floor for further montioring and discharge planning. Below is the problem list and plan: 1. Leucocytosis reactive * Leukocytosis most likely reactive wants, no symptom or signs suggestive of infection. Improved. 2. Metabolic acidosis 2/2 to DKA Blood sugars improved. THe dose of levemir changed to 4 U daily. Insulin sliding scale as per Dr. Muhammad recommendation. 3. Hypopituitaris secondary hyperthyroidism and adrenal insufficiency Hyperkalemia on admission, which imprved. * Switch IV hydrocortisone to by mouth 15 mg at 8 AM and 5 mg at 4 PM * Continue levothyroxine 50 MCG cheryl * Adjust NovoLog to pre-meal and bedtime with a sliding scale as mentioned and patient medication order. * Continue Accu check * Decrease Levemir to 6 units twice a day 3. Neurological/psychiatric * cocaine, marijuana positive on urine toxicology. * IV Ativan when necessary for cocaine withdrawal, if seems to be withdrawing, currently doesnt seem to be withdrawing. * Patient refused psych evaluation * start Escitalopram 10 mg daily Current active smoker drug abuser : smoking cessation * couselling, cocaine abuse counselling. Problem List: 1. Cocaine abuse 2. Diabetes mellitus 3. DKA (diabetic ketoacidoses) Pain Ratin Pain Location: nine Pain Goal: Pain 4 or less Pain Plan: tylenol prn Tomorrow's Labs & Rationales: no labs, pt to be discharged. Consulting Request: Consulting Specialty: Endocrinology Consulting Physician: Dr mahoney Reason for Consult: RAMÓN ROSAS MD,KAREN 10/28/16 1400: Attending MD Review Statement Attending Statement Attending MD Statement: examined this patient, discuss w/resident/PA/MDS RN, agreed w/resident/PA/MDS RN, reviewed EMR data (avail), discussed with nursing, discussed with case mgmt, reviewed images, amended to note Attending Assessment/Plan: Patient seen and examined, overall feeling much better. Patient was originally admitted to ICU with DKA, history of adrenal insufficiency and hypothyroidism. DKA resolved and blood sugars were stabilized on subcutaneous insulin. This morning she was slightly hypoglycemic. Levemir dose was adjusted by Dr. Mahoney. Later on blood sugars were improved and her lunch and post lunch but sugars were stable. She is medically stable for discharge home today on new insulin regimen. She will be continued on hydrocortisone, levothyroxine. Should follow -up with her primary care doctor as well as endocrinology as an outpatient.
--- NOTE | 2016-10-28 07:41 | PN- Diabetes ---
Assessment/Plan Assessment: Patient has had history of diabetes type 1 , hypopituitarism, secondary adrenal insufficiency and secondary hypothyroidism, drug abuse, was admitted for DKA. The cause of DKA most likely is due to noncompliance of insulin ? because of the cost. However, drug screening was postive for cocaine. She was treated with IVF and insulin drip. Physically she felt better; however, she was upset and admitted that she did have suicidal ideation. Psych consult was called; but patient refused to be seen. She was put on Levemir 6 units twice a day and Novolog coverage before meals and Novolog coverage at bedtime. FSGs were 78, 73, 138, 193 and 114. But her glucose level was less than 50 this morning and she had snack and orange juices. She has been on stress dose of steroid. Currently she is on Hydrocortisone 15 mg at 8 am and 5 mg in the afternoon. She feels well. Plan: 1. DM type 1: --- decrease Levemir to 4 units twice a day; ---continue the current Novolog coverage before meals and Novolog coverage at bedtime ---monitor FSGS. 2. continue the current hydrocortisone and Levothyroxine replacement. 3. if her glucose level is stable later today, from endocrine stand point, patient can be discharged as patient is eager to go home. The discharge plan: ----Lantus 4 units twice a day; ---Humalog before meals according to the scale ( same scale as inpatient Novolog coverage before meals) ---monitor FSGs x 4 times a day ---hydrocortisone 15 mg at 8 am and 5 mg at 4 pm ---Levothyroxine 50 mcg daily ---f/u in office after discharge. Subjective Subjective: She feels better this morning and would like to go home. Objective Last 24 Hrs of Vital Signs/I&O Vital Signs Date Time Temp Pulse Resp B/P B/P Pulse O2 O2 Flow FiO2 Mean Ox Delivery Rate 10/27 2240 99.1 69 18 132/76 98 Room Air 10/27 2210 69 132/76 10/27 1603 98.9 69 20 124/86 100 Room Air 10/27 1207 98.5 67 20 124/80 97 Room Air 10/27 1055 72 144/80 10/27 0800 98.8 76 18 140/78 98 Room Air Intake & Output 10/28 0800 10/28 0000 10/27 1600 Intake Total 600 800 Output Total 400 Balance 600 400 Intake, Oral 600 800 Number 1 Bowel Movements Output, Urine 400 Patient 140 lb Weight Findings Pertinent Lab/Hi Results: Laboratory Tests 10/28 0638 Chemistry Sodium Pending Potassium Pending Chloride Pending Carbon Dioxide Pending Anion Gap Pending BUN Pending Creatinine Pending BUN/Creatinine Ratio Pending Glucose Pending Hematology CBC w Diff Pending WBC Pending RBC Pending Hgb Pending Hct Pending MCV Pending MCH Pending RDW Pending Plt Count Pending MPV Pending PUBS MCHC Pending
--- NOTE | 2016-10-28 08:15 | NUR ---
DR. JAIN NOTIFIED OF PT'S FINGERSTICK OF <50 THIS AM. PT CAME UP TO 82 AFTER JUICE, MILK AND TOAST
[2016-10-28 08:24] LABS: ABSOLUTE BASOPHIL COUNT 0 /CUMM (0.0-0.2); ABSOLUTE EOSINOPHIL COUNT 0.1 /CUMM (0.0-0.7); ABSOLUTE GRANULOCYTE CT 3.9 /CUMM (1.4-6.5); MEAN CORPUSCULAR HGB CONC 33.2 G/DL (33.0-37.0); MEAN CORPUSCULAR VOLUME 89.3 FL (81.0-99.0)
[2016-10-28 09:04] LABS: ABSOLUTE LYMPH COUNT 3.9 /CUMM (1.2-3.4); ABSOLUTE MONOCYTE COUNT 0.8 /CUMM (0.10-0.60); BASOPHIL % 0.4 % (0.0-2.0); EOSINOPHIL % 1.4 % (0-5); GRANULOCYTE % 44.8 % (42.2-75.2); MEAN CORPUSCULAR HGB 29.6 PG (27.0-31.0); MEAN PLATELET VOLUME 9.5 FL (7.4-10.4); PLATELET COUNT 240 /CUMM (130-400); RBC DISTRIBUTION WIDTH 13.7 % (11.5-14.5); WHITE BLOOD CELL COUNT 8.8 /CUMM (4.8-10.8)
[2016-10-28 09:27] LABS: HEMATOCRIT 37.6 % (37-47); RED BLOOD CELL CT 4.21 /CUMM (4.20-5.40)
[2016-10-28] MEDS ORDERED: CORTEF5 M1 PO ×3 (10:17→13:11)
--- NOTE | 2016-10-28 10:41 | Patient Discharge Instructions ---
Discharge Instructions General Discharge Information You were seen/treated for: Diabetic ketoacidosis Adrenal insufficiency Watch for these problems: - nausea, vomiting - severe abdominal pain - chest pain, shortness of breath Diet Continue normal diet: Yes Acute Coronary Syndrome Inclusion Criteria At DC or during hospital stay patient has or had the following: ACS DIAGNOSIS No Discharge Core Measures Meds if any: Prescribed or Continued at Discharge Meds if any: NOT Prescribed or Continued at Discharge Congestive Heart Failure Inclusion Criteria At DC or during hospital stay patient has or had the following: CHF DIAGNOSIS No Discharge Core Measures Meds if any: Prescribed or Continued at Discharge Meds if any: NOT Prescribed or Continued at Discharge Cerebrovascular accident Inclusion Criteria At DC or during hospital stay patient has or had the following: CVA/TIA Diagnosis No Discharge Core Measures Meds if any: Prescribed or Continued at Discharge Meds if any: NOT Prescribed or Continued at Discharge Venous thromboembolism Inclusion Criteria VTE Diagnosis No VTE Type NONE VTE Confirmed by (Test) NONE Discharge Core Measures - Per Current guidelines, there needs to be overlap - treatment for the first 5 days of Warfarin therapy. - If discharged on Warfarin prior to 5 days of - overlap therapy, the patient will need to be - assessed for post discharge needs including - *Post discharge parental anticoagulation - *Warfarin and/or parental anticoagulation education - *Follow up date to check INR post discharge At least 5 days overlap therapy as Inpatient No Meds if any: Prescribed or Continued at Discharge Note: Overlap Therapy is Warfarin and Anticoagulant Meds if any: NOT Prescribed or Continued at Discharge
[2016-10-28] MEDS ORDERED: HUMALOG100 UNIT/2 SC ×3 (11:03→13:11)
--- NOTE | 2016-10-29 07:35 | Discharge Summary ---
Visit Information Visit Dates Admission Date: 10/25/16 Discharge Date: 10/28/16 Hospital Course Course Attending Physician: KAREN ROSAS MD Primary Care Physician: TIMBO SANTA MD Consulting Request: Consulting Specialty: Endocrinology Consulting Physician: Dr mahoney Reason for Consult: DKA Hospital Course: 51-year-old female with extensive past medical history includes but not limited to diabetes type 1 , hypopituitarism, secondary adrenal insufficiency and secondary hypothyroidism, and drug abuse, was admitted for DKA with hyperkalemia up to 6. The cause of DKA most likely is due to noncompliance of insulin according to the patient she is noncompliance because of the cost. However, drug screening was postive for cocaine. Patient was admitted to the ICU. Her DKA was treated with IVF and insulin drip. Her potassium was trended down. For secondary adrenal insufficiency she received hydrocortisone as a stress dose on admission that was titrated down as per endocrinology recommendations and for secondary hypothyroidism she was given home dose of levothyroxin. On discharge patient Humalog and Hydrocortisone was adjusted as per endocrinology recommendation. Please look at the discharge medication for further details. Patient had a sinus tachycardia and history of stent placement 2014. After acute coronary syndrome was ruled out, She was continued on aspirin, statin, Plavix and Coreg. Patient had a known history of polysubstance abuse and appears to be quite depressed in the context of medical hospitalization. Unfortunately she refused to provide consent to the psychiatric service. Patient will be instructed to follow with psychiatric as an outpatient. Allergies: Coded Allergies: codeine (ITCHING 08/02/15) Pertinent Lab Results: SERVICE DATE: 10/25/16-1448 EXAM TYPE: CAT - CT ABD & PELVIS W/O IV CONTRAS EXAMINATION: CT ABDOMEN AND PELVIS WITHOUT CONTRAST CLINICAL INFORMATION: Abdominal pain, nausea, vomiting. COMPARISON: 01/02/2015. TECHNIQUE: Contiguous axial thin section helical images of the abdomen and pelvis were performed without oral or IV contrast. The data set was reformatted in the coronal and sagittal planes and reviewed on an independent workstation. DLP: 299 mGy-cm. FINDINGS: There is mild bibasilar atelectasis. The visualized lung bases are otherwise clear. The visualized portions of the heart are unremarkable. There is a small hiatal hernia. The liver is of normal size and attenuation without focal lesions nor intrahepatic biliary ductal dilation. A normal gallbladder is identified. There is no wall thickening or discernible pericholecystic fluid. The spleen, pancreas, adrenal glands are unremarkable. Both kidneys are of normal size and attenuation without hydronephrosis or nephrolithiasis. There is no abdominal free fluid. There is neither mesenteric nor retroperitoneal lymphadenopathy. Normal unopacified loops of small and large bowel are identified. A normal appendix is identified. There is no pelvic free fluid. A Faria catheter is in place. The urinary bladder is otherwise unremarkable. There is neither pelvic nor inguinal lymphadenopathy. Bone windows: Neither sclerotic nor lytic bone lesions are identified. There are bilateral L5 pars defects with mild grade 1 anterolisthesis of L5 in relation to L4 and S1. IMPRESSION: No evidence for acute abdominal or pelvic inflammatory or infectious processes. Neither hydronephrosis nor nephrolithiasis. Small hiatal hernia. Mild bilateral L5 pars defects with mild grade 1 anterolisthesis of L5 in relation to S1. DICTATED BY: LIZZETH LAMB MD DATE/TIME DICTATED:10/25/161804 RICKSHAW DRIVER:DORIS DATE/TIME TRANSCRIBED:10/25/161804 CONFIDENTIAL, DO NOT COPY WITHOUT APPROPRIATE AUTHORIZATION. Disposition Summary Disposition Principal Diagnosis: 1. DKA 2. Hyperkalemia Additional Diagnosis: 1. Depression 2. Secondary Adrenal insufficiency 3. Secondary hypothyroidism Discharge Disposition: home or self care Discharge Instructions General Discharge Information Code Status: Full Code Patient's Diet: Diabetic diet Patient's Activity: Can be active as tolerated Follow-Up Instructions/Appts: 1. Follow up with endocrinology Dr. mahoney 2. Follow-up with your primary care doctor Dr. Swift 3. Follow-up with psychiatric service to further address your depression Medications at Discharge Discharge Medications: Stop taking the following medications: Insulin Aspart (Novolog) 100 UNIT/ML VIAL Inject into fatty tissue SEE INSTRUCTIONS Days = 30 Hydrocortisone (Cortef) 20 MG TABLET ORAL GIVE ONCE Days = 14 Hydrocortisone (Cortef) 10 MG TABLET ORAL GIVE ONCE Days = 14 Continue taking these medications: Carvedilol (Coreg) 6.25 MG TABLET 1 Tablet ORAL TWICE DAILY Comments: Last Taken: 10/28/16 Time: 0950 Atorvastatin Calcium (Lipitor) 80 MG TABLET 1 Tablet ORAL DAILY Comments: Last Taken: 10/27/16 Time: 4PM Lisinopril (Prinivil) 5 MG TAB 1 Tablet ORAL DAILY Comments: PER PT MED LIST Gabapentin (Neurontin) 800 MG TABLET 1 Tablet ORAL THREE TIMES DAILY Qty = 90 Comments: Last Taken: 10/28/16 Time: 0950 Clopidogrel Bisulfate (Clopidogrel) 75 MG TABLET 1 Tablet ORAL DAILY Qty = 90 Comments: Last Taken: 10/28/16 Time: 0950 Escitalopram Oxalate (Escitalopram Oxalate) 10 MG TABLET 1 Tablet ORAL DAILY Qty = 90 Comments: Last Taken: 10/28/16 Time: 0950 Aspirin (Aspirin*) 81 MG TAB.CHEW 1 Tablet ORAL DAILY Days = 30 Comments: Last Taken: 10/28/16 Time: 0950 Insulin Detemir (Levemir) 100 UNIT/ML VIAL 4 Unit Inject into fatty tissue TWICE DAILY Days = 30 Comments: Last Taken: 10/28/16 Time: 0950 Levothyroxine Sodium (Synthroid) 50 MCG TABLET 50 Microgram ORAL GIVE ONCE Days = 14 Comments: Last Taken: 10/28/16 Time: 0950 Start taking the following new medications: Hydrocortisone (Cortef) 5 MG TABLET 0 ORAL SEE INSTRUCTIONS Qty = 90 Refills = 1 Instructions: please take. 15 mg(3 tabs) at 8 AM every day. 10 mg(2 tabs) at 5 PM every day. Comments: Last Taken: 10/27/16 Time: 4PM Insulin Lispro (Humalog) 100 UNIT/ML VIAL 0 Inject into fatty tissue SEE INSTRUCTIONS Qty = 1 Refills = 2 Instructions: please take.- blood sugar insulin dose <80 mg/dl no insulin 80-150 mg/dl 3 units 151-200 mg/dl 4 units 201-250 mg/dl 5 units 251-300 mg/dl 6 units 301-350 mg/dl 7 units 351-400 mg/dl 8 units more than 400mg/dl 9 units Bed time scale blood sugar insulin dose 80-150 mg/dl no dose 151-200 mg/dl no dose 201-250 mg/dl no dose 251-300 mg/dl 2 units 301-350 mg/dl 3 units 351-400 mg/dl 4 units more than 400 mg/ml Copies To: BEVERLY BONDS,YOSELIN; ELIF BONDS,PARAS
== END 2016-10-28 13:45 | DRG 420 ==
LOC: ERH 13:07 → 2NB 14:47 → ERHI 14:47 → CRI 14:47 → 2NB 14:47 → ENRESERV 15:28 → ENTRNSPT 17:33 → CRI 17:51 → CMPTRNSPT 18:21 → 2NB 10-27 15:01 → ENPENDDIS 10-28 13:12 → 2NB 10-28 13:45
PROVIDERS: Emergency Medicine; Internal Medicine; Student in an Organized Health Care Education/Training Program; ADMIT Internal Medicine Pulmonary Disease
DX: E10.10 Type 1 diabetes mellitus with ketoacidosis without coma (principal); E27.40 Unspecified adrenocortical insufficiency; N17.9 Acute kidney failure, unspecified; E87.3 Alkalosis; R45.851 Suicidal ideations; Z79.4 Long term (current) use of insulin; F14.929 Cocaine use, unspecified with intoxication, unspecified; T38.3X6A Underdosing of insulin and oral hypoglycemic [antidiabetic] drugs, initial encounter; Y92.009 Unspecified place in unspecified non-institutional (private) residence as the place of occurrence of the external cause; E86.0 Dehydration; F17.210 Nicotine dependence, cigarettes, uncomplicated; E87.5 Hyperkalemia; F32.9 Major depressive disorder, single episode, unspecified; E03.9 Hypothyroidism, unspecified
CPT/HCPCS: 2NSBP; CCU; 36415; 74176; 80307; 81001; 82436; 87040; 87086; 93005; 93010; 96361; 96374; 96376; 99291; G0480; J0131; J1644; J1720; J1815; J2405; J2550; J3250; J3490; J7042

== ENCOUNTER 2017-05-26 10:23 | Emergency (ER) | payer OTHER ==
[~2017-05-26 10:23] MED LIST changes: +CORTEF5 M1 PO; +HUMALOG100 UNIT/2 SC; +IBUPROFEN600 M1 PO; +NORCO 5-325 TA1 EACH PO; -PRINIVIL 5MG5 MG PO; +PRINIVIL5 M1 PO
[2017-05-26 10:26] VITALS: BP 125/84
--- NOTE | 2017-05-26 10:55 | ED INFLUENZA/URI COMPLAINT ---
History of Present Illness General Chief Complaint: Upper Respiratory Sx/Fever Stated Complaint: URI X 1WEEK Source: patient Exam Limitations: no limitations Vital Signs & Intake/Output Vital Signs & Intake/Output Vital Signs Date Time Temp Pulse Resp B/P B/P Pulse O2 O2 Flow FiO2 Mean Ox Delivery Rate 05/26 1026 98.4 96 18 125/84 97 Room Air Allergies Coded Allergies: codeine (ITCHING 08/02/15) Reconcile Medications Amoxicillin/Potassium Clav (Augmentin 875-125 Tablet) 875 MG-125 MG TABLET 1 TAB PO BID BRONCHITIS Aspirin (Aspirin*) 81 MG TAB.CHEW 1 TAB PO DAILY HEART (Reported) Atorvastatin Calcium (Lipitor) 80 MG TABLET 1 TAB PO DAILY lipid lowering ( Reported) Benzonatate (Tessalon Perle) 100 MG CAPSULE 1 CAP PO TID PRN COUGH Carvedilol (Coreg) 6.25 MG TABLET 1 TAB PO BID heart health (Reported) Clopidogrel Bisulfate (Clopidogrel) 75 MG TABLET 1 TAB PO DAILY BLOOD THINNER (Reported) Escitalopram Oxalate 10 MG TABLET 1 TAB PO DAILY MENTAL HEALTH (Reported) Gabapentin (Neurontin) 800 MG TABLET 1 TAB PO TID NEUROPATHY (Reported) Hydrocortisone (Cortef) 5 MG TABLET 0 PO SEE ADMIN CRITERIA adrenal insufficiency please take. 15 mg(3 tabs) at 8 AM every day. 10 mg(2 tabs) at 5 PM every day. Ibuprofen 600 MG TABLET 1 TAB PO Q6PRN PRN pain with food Insulin Detemir (Levemir) 100 UNIT/ML VIAL 4 UNIT SC BID DM Insulin Lispro (Humalog) 100 UNIT/ML VIAL 0 SC SEE ADMIN CRITERIA diabetes please take.- blood sugar insulin dose <80 mg/dl no insulin 80-150 mg/dl 3 units 151-200 mg/dl 4 units 201-250 mg/dl 5 units 251-300 mg/dl 6 units 301-350 mg/dl 7 units 351-400 mg/dl 8 units more than 400mg/dl 9 units Bed time scale blood sugar insulin dose 80-150 mg/dl no dose 151-200 mg/dl no dose 201-250 mg/dl no dose 251-300 mg/dl 2 units 301-350 mg/dl 3 units 351-400 mg/dl 4 units more than 400 mg/ml Levothyroxine Sodium (Synthroid) 50 MCG TABLET 1 TAB PO DAILY AC THYROID ( Reported) Lisinopril (Prinivil) 5 MG TABLET 1 TAB PO DAILY HEART (Reported) Prednisone 10 MG TABLET 1 TAB PO DAILY BRONCHITIS 3 TABS PO X 3 DAYS, 2 TABS PO X 3 DAYS, 1 TAB PO X 3 DAYS Triage Note: PT TO ED C/O URI SYMPTOMS X1 WEEKS. STATES SHE GETS CHILLS AT TIMES. AFEBRILE IN TRIAGE. PT FEELS LIKE SHE CANT BREATH AT TIMES EITHER, CURRENTLY IS ABLE TO SPEAK IN COMPLETE SENTENCES, COLOR APPEARS NORMAL, RA SAT 97%. Triage Nurses Notes Reviewed? yes Onset: Gradual Duration: week(s): (1) Timing: remote history Severity: moderate Severity Numbers: 6 Prior Episodes/Possible Cause: occassional episodes No Modifying Factors: none Associated Symptoms: cough HPI: Patient is a 52-year-old female presenting to the emergency department with chief complaint of upper respiratory congestion, dry cough that finger at the past one week. Positive myalgias, no fevers or chills. Denies chest pain or palpitations. No nausea or vomiting. No abdominal pain. No change in bowel or bladder habits. Has not been using anything [id number] to help us symptoms. She does admit that she still smoking. Remote history of asthma as a child. Denies sputum production. (Miguelina Chase) Past History Travel History Traveled to [place] past 21 day No Medical History Any Pertinent Medical History? 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 No (Miguelina Chase) Review of Systems Review of Systems Constitutional: Reports: malaise. Comments Review of systems: See HPI, All other systems negative. Constitutional, no chills fever or weight loss HEENT: No visual changes no sore throat Cardiovascular: No chest pain ,palpitation , orthopnea or ankle swelling Skin, no jaundice no rashes Respiratory: No dyspnea sputum or hemoptysis GI: No nausea no vomiting : No dysuria No hematuria Muscle skeletal: no back pain, no neck pain, Neurologic: No numbness no confusion, no headaches Psych: No stress anxiety or depression,. Heme/endocrine: No bruising no bleeding no polyuria or polydipsia Immunology: No splenectomy or history of AIDS (Miguelina Chase) Physical Exam Physical Exam General Appearance: well developed/nourished, no apparent distress, alert, awake , comfortable Ears, Nose, Throat: nasal congestion, nasal drainage Comments: Well-developed well-nourished person in no acute distress HEENT: . Pupils equally round and reactive to light and accommodation. Nose is atraumatic. External auditory canal and Tympanic membranes clear. Pharynx normal. No swelling or edema. Clear nasal discharge bilaterally. Neck: Supple, no lymphadenopathy Back: Nontender, no CVA tenderness. Full range of motion Cardiovascular: Regular rate and rhythms no murmurs rubs or gallops, normal JVP Respiratory: Chest nontender. No respiratory distress.breath sounds slightly diminished to auscultation bilaterally, dry cough on exam. Extremity: No edema, no calf tenderness to palpation, normal and equal pulses. Neuro: Alert oriented x3 Skin: No appreciable rash on exposed skin, skin is warm and dry. Psych: Mood and affect is normal, memory and judgment is normal. Core Measures Sepsis Present: No Sepsis Focused Exam Completed? No (Miguelina Chase) Progress Differential Diagnosis: influenza, pneumonia, pharyngitis, sinusitis, BRONCHITIS Plan of Care: Orders Procedure Date/time Status XRY-CHEST XRAY, TWO VIEWS 05/26 1104 Active Current Medications Sig/Maximus Start time Last Medication Dose Stop Time Status Admin Albuterol Sulfate 3 ML ONCE ONE 05/26 1115 AC (Proventil) 05/26 111 Ipratropium [place] 2.5 ML ONCE ONE 05/26 1115 AC (Atrovent) 05/26 1116 Diagnostic Imaging: Viewed by Me: Radiology Read. Discussed w/RAD: Radiology Read. Radiology Impression: PATIENT: JES PAIGE PRESENT AGE: 52 PATIENT ACCOUNT NO: [id number] : 66 LOCATION: [facility] ORDERING PHYSICIAN: Miguelina JENSEN SERVICE DATE: 05/26/17 EXAM TYPE: RAD - XRY-CHEST XRAY, TWO VIEWS EXAMINATION: XR CHEST CLINICAL INFORMATION : Cough. COMPARISON: 05/04/2017 TECHNIQUE: 2 views of the chest were obtained. FINDINGS: Mild peribronchial thickening. No focal consolidation or atelectasis. Pleural spaces clear. The heart and mediastinum are unremarkable. No focal osseous abnormality. IMPRESSION: Mild peribronchial thickening which may reflect bronchitis or asthma, correlate clinically. No evidence of consolidation. DICTATED BY: Eron Felton MD DATE/TIME DICTATED:05/26/171143 MOTORCYCLE REPAIR SHOP SUPERVISOR:DORIS DATE/TIME TRANSCRIBED:05/26/171143 CONFIDENTIAL, DO NOT COPY WITHOUT APPROPRIATE AUTHORIZATION. Initial ED EKG: none (Miguelina Chase) Departure Departure Time of Disposition: 1151 Disposition: HOME OR SELF CARE Condition: Stable Clinical Impression Primary Impression: Bronchitis Referrals: Chantal Cornejo MD (PCP/Family) Additional Instructions: Follow-up with your primary care physician in the next 2-4 days. Take azithromycin, prednisone, Tessalon Perles as prescribed. Increase fluids. Return for worsening symptoms or concerns. Departure Forms: Customer Survey General Discharge Information Prescriptions: Current Visit Scripts Amoxicillin/Potassium Clav (Augmentin 875-125 Tablet) 1 TAB PO BID #20 TAB Prednisone 1 TAB PO DAILY #18 TAB 3 TABS PO X 3 DAYS, 2 TABS PO X 3 DAYS, 1 TAB PO X 3 DAYS Benzonatate (Tessalon Perle) 1 CAP PO TID PRN COUGH #30 CAP (Miguelina Chase) PA/WEB DEVELOPMENT INTERN Co-Sign Statement Statement: ED Attending supervision documentation- [] I saw and evaluated the patient. I have also reviewed all the pertinent lab results and diagnostic results. I agree with the findings and the plan of care as documented in the PA's/WEB DEVELOPMENT INTERN's documentation. [X] I have reviewed the ED Record and agree with the PA's/WEB DEVELOPMENT INTERN's documentation. [] Additions or exceptions (if any) to the PAs/WEB DEVELOPMENT INTERN's note and plan are summarized below: [] (Aubrey Shannon DO
[2017-05-26] MEDS ORDERED: SYNTHROID50 MCG PO (11:06)
--- NOTE | 2017-05-26 11:48 | RADIOLOGY REPORT ---
EXAMINATION: XR CHEST CLINICAL INFORMATION: Cough. COMPARISON: 05/04/2017 TECHNIQUE: 2 views of the chest were obtained. FINDINGS: Mild peribronchial thickening. No focal consolidation or atelectasis. Pleural spaces clear. The heart and mediastinum are unremarkable. No focal osseous abnormality. IMPRESSION: Mild peribronchial thickening which may reflect bronchitis or asthma, correlate clinically. No evidence of consolidation.
[2017-05-26] MEDS ORDERED: PREDNISONE10 M2 PO (11:54)
[2017-05-26] MEDS ORDERED: TESSALON PERLE100 M1 PO (11:54)
[2017-05-26] MEDS ORDERED: AUGMENTIN 875-1 EACH PO (11:54)
== END 2017-05-26 12:02 ==
LOC: ERH 10:23
DX: J40 Bronchitis, not specified as acute or chronic (principal)
CPT/HCPCS: 1263; 71046

== ENCOUNTER 2017-10-24 16:36 | Inpatient (IN) | payer OTHER ==
[~2017-10-24] VITALS: Ht 162.6 cm; Wt 67.1 kg
[~2017-10-24 16:36] MED LIST changes: +AUGMENTIN 875-1 EACH PO; +PREDNISONE10 M2 PO; +TESSALON PERLE100 M1 PO
[2017-10-24 17:51] LABS: ABSOLUTE BASOPHIL COUNT 0.1 /CUMM (0.0-0.2); ABSOLUTE EOSINOPHIL COUNT 0.4 /CUMM (0.0-0.7); ABSOLUTE GRANULOCYTE CT 4.7 /CUMM (1.4-6.5); ABSOLUTE LYMPH COUNT 2.7 /CUMM (1.2-3.4); ABSOLUTE MONOCYTE COUNT 0.5 /CUMM (0.10-0.60); BASOPHIL % 0.8 % (0.0-2.0); EOSINOPHIL % 4.9 % (0-5); GRANULOCYTE % 55.5 % (42.2-75.2); HEMATOCRIT 32.8 % (37-47); MEAN CORPUSCULAR HGB CONC 34.8 G/DL (33.0-37.0); MEAN CORPUSCULAR VOLUME 89.2 FL (81.0-99.0); PLATELET COUNT 309 /CUMM (130-400); RBC DISTRIBUTION WIDTH 14.8 % (11.5-14.5); RED BLOOD CELL CT 3.68 /CUMM (4.20-5.40); WHITE BLOOD CELL COUNT 8.4 /CUMM (4.8-10.8)
--- NOTE | 2017-10-24 18:04 | RADIOLOGY REPORT ---
EXAMINATION: XR CHEST CLINICAL INFORMATION: Rule out cardiopulmonary process. Chest pain. COMPARISON: Chest radiograph 05/26/2017. TECHNIQUE: 2 views of the chest were obtained. The frontal view was repeated. FINDINGS: Lungs are clear without consolidation, edema, effusion, or pneumothorax. The cardiomediastinal silhouette appears normal. There is a coronary stent in place. There are mild degenerative changes in the thoracolumbar spine. IMPRESSION: No active disease in the chest.
--- NOTE | 2017-10-24 18:30 | ED CARDIAC/CP/PALPITATIONS ---
History of Present Illness General Chief Complaint: General Adult Stated Complaint: SENT IN BY MD FOR ABNORMAL EKG Source: patient Exam Limitations: no limitations Allergies Coded Allergies: celery (VOMITING 10/24/17) codeine (ITCHING 10/24/17) Reconcile Medications Amoxicillin/Potassium Clav (Augmentin 875-125 Tablet) 875 MG-125 MG TABLET 1 TAB PO BID BRONCHITIS Aspirin (Aspirin*) 81 MG TAB.CHEW 1 TAB PO DAILY HEART (Reported) Atorvastatin Calcium (Lipitor) 80 MG TABLET 1 TAB PO DAILY lipid lowering ( Reported) Benzonatate (Tessalon Perle) 100 MG CAPSULE 1 CAP PO TID PRN COUGH Carvedilol (Coreg) 6.25 MG TABLET 1 TAB PO BID heart health (Reported) Clopidogrel Bisulfate (Clopidogrel) 75 MG TABLET 1 TAB PO DAILY BLOOD THINNER (Reported) Escitalopram Oxalate 10 MG TABLET 1 TAB PO DAILY MENTAL HEALTH (Reported) Gabapentin (Neurontin) 800 MG TABLET 1 TAB PO TID NEUROPATHY (Reported) Hydrocortisone (Cortef) 5 MG TABLET 0 PO SEE ADMIN CRITERIA adrenal insufficiency please take. 15 mg(3 tabs) at 8 AM every day. 10 mg(2 tabs) at 5 PM every day. Ibuprofen 600 MG TABLET 1 TAB PO Q6PRN PRN pain with food Insulin Detemir (Levemir) 100 UNIT/ML VIAL 4 UNIT SC BID DM Insulin Lispro (Humalog) 100 UNIT/ML VIAL 0 SC SEE ADMIN CRITERIA diabetes please take.- blood sugar insulin dose <80 mg/dl no insulin 80-150 mg/dl 3 units 151-200 mg/dl 4 units 201-250 mg/dl 5 units 251-300 mg/dl 6 units 301-350 mg/dl 7 units 351-400 mg/dl 8 units more than 400mg/dl 9 units Bed time scale blood sugar insulin dose 80-150 mg/dl no dose 151-200 mg/dl no dose 201-250 mg/dl no dose 251-300 mg/dl 2 units 301-350 mg/dl 3 units 351-400 mg/dl 4 units more than 400 mg/ml Levothyroxine Sodium (Synthroid) 50 MCG TABLET 1 TAB PO DAILY AC THYROID ( Reported) Lisinopril (Prinivil) 5 MG TABLET 1 TAB PO DAILY HEART (Reported) Prednisone 10 MG TABLET 1 TAB PO DAILY BRONCHITIS 3 TABS PO X 3 DAYS, 2 TABS PO X 3 DAYS, 1 TAB PO X 3 DAYS Triage Note: PT SENT TO ED FROM DR. ASENCIO'S OFFICE FOR CHEST HEAVINESS AND LOWER BACK PAIN X 4 DAYS. PT HAS HX OF AK WITH CARDIAC STENT PLACEMENT. PT REPORTS WHEN SHE HAD AN AK LAST TIME SHE PRESENTED WITH UPPER BACK PAIN AND SOB. PT DENIES SOB, NUMBNESS, TINGLING, NAUSEA. Triage Nurses Notes Reviewed? yes Onset: Abrupt Duration: minute(s): (4), day(s): Timing: recent history Location: central Radiation: no radiation Prior Chest Pain/Card Workup: heart attack HPI: This is a 52 y/o female with PMH of STEMI, diabetes and hypothyroidism c/o heavy chest x 4 days. Pt saw her PCP today where EKG was done and changes were noted compared with her old EKG. The feeling of heaviness is constant w/o radiation. Pt rates her discomfort as 5/10. Pt has Hx of tobacco use 5 sigarettes per day for the past 30 years as well as occasional cannabis use. Pt has a Hx of cocaine use. Pt denies SOB, numbness/tingling, fever, chills, abd pain, N/V. (Seth Grigsby) Vital Signs & Intake/Output Vital Signs & Intake/Output Vital Signs Date Time Temp Pulse Resp B/P B/P Pulse O2 O2 Flow FiO2 Mean Ox Delivery Rate 10/24 2149 Room Air 10/24 2136 98.4 82 16 164/87 96 Room Air 10/24 1908 98.2 84 20 117/67 98 Room Air 10/24 1648 97.0 80 15 141/84 95 Room Air Room Air (Leonor BONDS,Aubrey Webster) Past History Travel History Traveled to [place] past 21 day No Medical History Any Pertinent Medical History? 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 No (Seth Grigsby) Review of Systems Review of Systems Constitutional: Reports: no symptoms. EENTM: Reports: no symptoms. Respiratory: Denies: short of breath. Cardiovascular: Reports: see HPI. GI: Reports: no symptoms. Genitourinary: Reports: no symptoms. Musculoskeletal: Reports: no symptoms. Skin: Reports: no symptoms. Neurological/Psychological: Reports: no symptoms. Hematologic/Endocrine: Reports: no symptoms. Immunologic/Allergic: Reports: no symptoms. All Other Systems: Reviewed and Negative (Seth Grigsby) Physical Exam Physical Exam General Appearance: well developed/nourished, no apparent distress, alert, awake Head: atraumatic, normal appearance Eyes: Bilateral: normal appearance. Ears, Nose, Throat: normal ENT inspection, hearing grossly normal Neck: normal inspection Respiratory: normal breath sounds, chest non-tender, no respiratory distress, lungs clear Cardiovascular: regular rate/rhythm Gastrointestinal: soft, non-tender Extremities: normal inspection Neurologic/Psych: no motor/sensory deficits, awake, alert Skin: intact, normal color, warm/dry Core Measures ACS in differential dx? Yes CVA/TIA Diagnosis No Sepsis Present: No Sepsis Focused Exam Completed? Yes (Seth Grigsby) Progress Differential Diagnosis: AMI, costochondritis, musculoskeletal pain, myocarditis, pancreatitis, pericarditis, pneumothorax, pulmonary embolism, PUD/GERD, respiratory failure Diagnostic Imaging: Viewed by Me: Radiology Read. Discussed w/RAD: Radiology Read. Radiology Impression: PATIENT: JES PAIGE PRESENT AGE: 52 PATIENT ACCOUNT NO: [id number] : 66 LOCATION: [facility] ORDERING PHYSICIAN: Jeaneth JENSEN SERVICE DATE: 10/24/17 EXAM TYPE: RAD - XRY-CHEST XRAY, TWO VIEWS EXAMINATION: XR CHEST CLINICAL INFORMATION : Rule out cardiopulmonary process. Chest pain. COMPARISON: Chest radiograph 03/2018. TECHNIQUE: 2 views of the chest were obtained. The frontal view was repeated. FINDINGS: Lungs are clear without consolidation, edema, effusion, or pneumothorax. The cardiomediastinal silhouette appears normal. There is a coronary stent in place. There are mild degenerative changes in the thoracolumbar spine. IMPRESSION: No active disease in the chest. DICTATED BY: Jerry Parikh MD DATE/TIME DICTATED:10/24/171758 FIELD CARE MANAGER:DORIS DATE/TIME TRANSCRIBED:10/24/171758 CONFIDENTIAL, DO NOT COPY WITHOUT APPROPRIATE AUTHORIZATION. <Electronically signed in Other Vendor System> SIGNED BY: Jerry Parikh MD 10/24/17 1804 Initial ED EKG: normal sinus rhythm, rate (75), nonspecific ST T wave chg Prior EKG: changed (Seth Grigsby) Plan of Care: Orders Procedure Date/time Status URINE DRUGS OF ABUSE 10/24 1820 Complete Add-on Test (ER Only) 10/24 1732 Active D-DIMER 10/24 1723 Complete TROPONIN LEVEL 10/24 1647 Complete COMPREHENSIVE METABOLIC PANEL 10/24 1647 Complete CBC WITHOUT DIFFERENTIAL 10/24 1647 Complete EKG 10/24 1637 Active Current Medications Sig/Maximus Start time Last Medication Dose Stop Time Status Admin Aspirin 325 MG ONCE ONE 10/24 2199 UNVr 10/24 (Aspirin) 10/24 2200 220 Laboratory Tests 10/24/17 2107: Urine Opiates Screen < 100, Methadone Screen 43, Barbiturate Screen < 60, Ur Phencyclidine Scrn < 6.00, Amphetamines Screen < 100, U Benzodiazepines Scrn < 85, Urine Cocaine Screen 684 H, Urine Cannabis Screen > 80.00 H 10/24/17 1910: Anion Gap 9, Estimated GFR > 60, BUN/Creatinine Ratio 15.0, Glucose 47 *L, Calcium 9.2, Total Bilirubin 0.2, AST 19, ALT 15, Alkaline Phosphatase 91, Troponin I < 0.01, Total Protein 6.6, Albumin 3.7, Globulin 2.9, Albumin/ Globulin Ratio 1.3 10/24/17 1723: D-Dimer High Sensitivty < 200, CBC w Diff NO MAN DIFF REQ, RBC 3.68 L, MCV 89.2 , MCH 31.0, MCHC 34.8, RDW 14.8 H, MPV 9.0, Gran % 55.5, Lymphocytes % 32.5, Monocytes % 6.3, Eosinophils % 4.9, Basophils % 0.8, Absolute Granulocytes 4.7, Absolute Lymphocytes 2.7, Absolute Monocytes 0.5, Absolute Eosinophils 0.4, Absolute Basophils 0.1 (Leonor BONDS,Aubrey Webster) Departure Departure Disposition: STILL A PATIENT Condition: Stable Clinical Impression Primary Impression: Acute electrocardiogram changes Secondary Impressions: Chest heaviness Referrals: Chantal Cornejo MD (PCP/Family) Departure Forms: Customer Survey General Discharge Information Admission Note Spoke With: Ruth Renteria MD Documentation of Exam: Documentation of any treatments & extenuating circumstances including Concerns Regarding Discharge (functional status, medication knowledge or non-compliance, living conditions, etc.) that warrant an admission rather than observation: Patient has a history of coronary disease. Acute EKG changes. Experiencing chest pain. Patient will require admission to the hospital. Serial troponins. Currently telemetry. Cardiac consultation. Spoke with Dr. Vázquez who is the patient's commodity buyer who agrees with care. (Seth Grigsby) PA/LIGHTING EQUIPMENT OPERATOR Co-Sign Statement Statement: ED Attending supervision documentation- [x] I saw and evaluated the patient. I have also reviewed all the pertinent lab results and diagnostic results. I agree with the findings and the plan of care as documented in the PA's/LIGHTING EQUIPMENT OPERATOR's documentation. Patient presents for evaluation of chest heaviness. Physical examination reveals a comfortable appearing woman in no acute respiratory distress. Upon my arrival to the room the patient was in a discussion with the PA regarding leaving AGAINST MEDICAL ADVICE. She was advised of her high risk for acute coronary syndrome including angina and heart attack. Upon my departure from the room the patient was deciding if she would stay or leave AGAINST MEDICAL ADVICE. Consultation with Dr. Vázquez was pending at that time. [] I have reviewed the ED Record and agree with the PA's/LIGHTING EQUIPMENT OPERATOR's documentation. [] Additions or exceptions (if any) to the PAs/LIGHTING EQUIPMENT OPERATOR's note and plan are summarized below: [] (Leonor BONDS,Aubrey Webster) Critical Care Note Critical Care Note Critical Care Time: 75-104 min (Seth Grigsby)
--- NOTE | 2017-10-24 22:25 | History & Physical ---
Manohar Poole MD,Ami 10/24/17 2224: General Information and HPI MD Statement: I have seen and personally examined JES PAIGE and documented this H& P. The patient is a 52 year old F who presented with a patient stated chief complaint of [chest pain]. Source of Information: patient, family, old records Exam Limitations: no limitations, poor historian History of Present Illness: Patient is 52-year-old female with PMH of CAD/STEMI s/p drug-eluting stent in 2014 (on dual antiplatelet), IDDM, HLP, hypopituitarism,adrenal insufficiency ( on Cortef), hypothyroidism, h/o drug abuse, bronchitis, hysterectomy 2015 s/p acute blood loss anemia, hyperlipidemia, anxitey, depression with suicidal ideation was referred from Dr Mahoney's office to ED for evaluation of chest pain associated with EKG changes. Patient was relatively poor historian, and was tearful at the end of interview. was present at the bedside. Patient noted that her chest pain as started from Tuesday, located in mid chest, pressure-like, CVAT ranging from 4-8/10, episode take lasting for 3 minutes, more than 10 episodes per day, no radiation, no change with activity as she was in bed for the whole weekend, increased with cough and deep breathing, not associated with shortness of breathing, change in urine color, stool color, weakness, sweating, nausea or vomiting. Patient reported her recent episode of bronchitis treated with oral antibiotics and steroid. Patient visited her PCP, Dr Mahoney today, EKG was done and was referred to hospital. She follows Dr. Bass, last visited 6-9 monhts ago and Echo and etc were normal per patient. She reported she was impaired since she has several stressors at home, was feeling safe, reported previous suicidal ideation but denied any current. She noted she was willing to refuse to stay in the hospital and take any medication but she changed her opinion. She lives with her , reported smoking 5 cigarettes per day, reported smoking marijuana but denied any cocaine (even when confronted). She reported occasional alcohol intake. chest pain and lower back pain for last 4 days, 5/10 PCP EKG changes Follows Dr Bass Patient was last admitted to in 2017 for DKA. reported smoking 5 cig/day for 30 years, occasional cannabis Allergies/Medications Allergies: Coded Allergies: celery (VOMITING 10/24/17) codeine (ITCHING 10/24/17) Past History Travel History Traveled to [place] past 21 day No Medical History Neurological: peripheral neuropathy EENT: NONE Cardiovascular: hyperlipidemia, STEMI, drug-eluting stent placement in October [address] elevation myocardial infarction Respiratory: NONE Gastrointestinal: NONE Hepatic: NONE Renal: NONE Musculoskeletal: NONE Psychiatric: anxiety, depression Endocrine: diabetes (TYPE 1), hypothyroidism Blood Disorders: NONE Cancer(s): NONE GYM ATTENDANT/Reproductive: miscarriage History of MRSA: No History of VRE: No History of CDIFF: No Surgical History Surgical History: tubal ligation, carpal tunnel surgery trigger finger surgery Past Family/Social History Family History Relations & Conditions if any grandmother FH: breast cancer Psychosocial History Who Do You Live With? spouse Services at Home: None Primary Language: Belarusian ETOH Use: denies use Illicit Drug Use: marijuana, MEDICAL MARIJUANA Living Will? no Functional Ability ADLs Independent: dressing, eating, toileting, bathing. Ambulation: independent IADLs Independent: shopping, housework, finances, food prep, telephone, transportation , medication admin. Review of Systems Review of Systems Constitutional: Reports: see HPI. Exam & Diagnostic Data Last 24 Hrs of Vital Signs/I&O Vital Signs Date Time Temp Pulse Resp B/P B/P Pulse O2 O2 Flow FiO2 Mean Ox Delivery Rate 10/24 2350 98.6 80 20 120/61 10/24 2321 98.6 80 20 120/61 97 Room Air 10/24 2149 Room Air 10/24 2136 98.4 82 16 164/87 96 Room Air 10/24 1908 98.2 84 20 117/67 98 Room Air 10/24 1648 97.0 80 15 141/84 95 Room Air Room Air Intake & Output 10/25 0800 10/25 0000 10/24 1600 Intake Total Output Total Balance Patient 147 lb Weight Weight Reported by Patient Measurement Method Physical Exam General Appearance Alert, Oriented X3, No Acute Distress, agitated at times, tearful at times Skin No Significant Lesion Skin Temp/Moisture Exam: Warm/Dry Sepsis Skin Exam (color): Normal for Ethnicity HEENT Atraumatic, EOMI Neck Supple, No JVD Cardiovascular Regular Rate, Normal S1, Normal S2 Lungs Normal Air Movement, crackles at the bases, Abdomen Soft, No Tenderness Neurological Normal Speech, Strength at 5/5 X4 Ext, Cranial Nerves 3-12 NL Extremities No Edema Last 24 Hrs of Labs/Hi: Laboratory Tests 10/24/17 2107: Urine Opiates Screen < 100, Methadone Screen 43, Barbiturate Screen < 60, Ur Phencyclidine Scrn < 6.00, Amphetamines Screen < 100, U Benzodiazepines Scrn < 85, Urine Cocaine Screen 684 H, Urine Cannabis Screen > 80.00 H 10/24/17 1910: Anion Gap 9, Estimated GFR > 60, BUN/Creatinine Ratio 15.0, Glucose 47 *L, Calcium 9.2, Total Bilirubin 0.2, AST 19, ALT 15, Alkaline Phosphatase 91, Troponin I < 0.01, Total Protein 6.6, Albumin 3.7, Globulin 2.9, Albumin/ Globulin Ratio 1.3 10/24/17 1723: D-Dimer High Sensitivty < 200, CBC w Diff NO MAN DIFF REQ, RBC 3.68 L, MCV 89.2 , MCH 31.0, MCHC 34.8, RDW 14.8 H, MPV 9.0, Gran % 55.5, Lymphocytes % 32.5, Monocytes % 6.3, Eosinophils % 4.9, Basophils % 0.8, Absolute Granulocytes 4.7, Absolute Lymphocytes 2.7, Absolute Monocytes 0.5, Absolute Eosinophils 0.4, Absolute Basophils 0.1 Assessment/Plan Assessment: Patient is 52-year-old female referred from Dr Mahoney's office to ED for evaluation of chest pain associated with EKG changes in bed for last 2 days pain pleuretic Depressed, tearful during interview PMH of CAD/STEMI s/p drug-eluting stent in 2014 (on dual antiplatelet), IDDM, HLP, hypopituitarism,adrenal insufficiency (on Cortef), hypothyroidism, h/o drug abuse, bronchitis, hysterectomy 2015 s/p acute blood loss anemia, hyperlipidemia , anxitey, depression with suicidal ideation VS, Ph Ex at admission: Not significant Labs at admission: Hgb 11.4, WBC 8.4 Potassium 3.4, glucose 47, otherwise insignificant, troponin negative Uterus tox positive for cocaine and cannabis Imagings at admission: Chest x-ray: No active disease in the chest. Patient was admitted to telemetry floor for management of following conditions: Chest pain Most likely non cardiac, pleuretic, bronchitis/ACS/PE/ cocain abuse depressed mood chronic medical conditions - Admit patient to telemetry floor -Blood pressure, lunchroom monitor -EKG troponins, serial -Hold beta blockers -Cardiac consult in a.m. -Psych consult in a.m., hold for now per patient preferance DVT prophylaxis, LOVENOX and ALP S Diabetic diet Full code (patient depressed at the time of interview) As Ranked By This Provider Problem List: 1. Chest pain 2. Cocaine abuse Core Measures/Misc (01/30) Acute Coronary Syndrome ACS Diagnosis: No Congestive Heart Failure Congestive Heart Failure Diagnosis No Cerebrovascular Accident CVA/TIA Diagnosis: No VTE (View Protocol) VTE Risk Factors Age>40 No Mechanical VTE Prophylaxis d/t N/A MechProphylax Ordered No VTE Pharm Prophylaxis d/t NA PharmProphylax ordered Sepsis (View protocol) Sepsis Present: No If YES complete Sepsis Event Note If YES complete Sepsis Event Note Félix Bangura 10/24/17 2859: General Information and HPI Allergies/Medications Home Med list Albuterol Sulfate (Proair Hfa) 90 MCG HFA.AER.AD 2 PUF INH Q4-6 PRN PRN SOB ( Reported) Aspirin (Aspirin*) 81 MG TAB.CHEW 1 TAB PO DAILY HEART (Reported) Atorvastatin Calcium (Lipitor) 80 MG TABLET 1 TAB PO DAILY lipid lowering ( Reported) Carvedilol (Coreg) 6.25 MG TABLET 1 TAB PO BID heart health Resume on 10/27 Clopidogrel Bisulfate (Clopidogrel) 75 MG TABLET 1 TAB PO DAILY BLOOD THINNER (Reported) Escitalopram Oxalate 10 MG TABLET 1 TAB PO DAILY MENTAL HEALTH (Reported) Gabapentin (Neurontin) 800 MG TABLET 1 TAB PO TID NEUROPATHY (Reported) Hydrocortisone (Cortef) 5 MG TABLET 0 PO SEE ADMIN CRITERIA adrenal insufficiency please take. 15 mg(3 tabs) at 8 AM every day. 10 mg(2 tabs) at 5 PM every day. Insulin Detemir (Levemir) 100 UNIT/ML VIAL 4 UNIT SC BID DM Insulin Lispro (Humalog) 100 UNIT/ML VIAL 0 SC SEE ADMIN CRITERIA diabetes please take.- blood sugar insulin dose <80 mg/dl no insulin 80-150 mg/dl 3 units 151-200 mg/dl 4 units 201-250 mg/dl 5 units 251-300 mg/dl 6 units 301-350 mg/dl 7 units 351-400 mg/dl 8 units more than 400mg/dl 9 units Bed time scale blood sugar insulin dose 80-150 mg/dl no dose 151-200 mg/dl no dose 201-250 mg/dl no dose 251-300 mg/dl 2 units 301-350 mg/dl 3 units 351-400 mg/dl 4 units more than 400 mg/ml Levothyroxine Sodium (Synthroid) 50 MCG TABLET 1 TAB PO DAILY AC THYROID ( Reported) Lisinopril (Prinivil) 5 MG TABLET 1 TAB PO DAILY HEART (Reported) Trazodone HCl 50 MG TABLET 1 TAB PO QPM SLEEP (Reported) Core Measures/Misc (01/30) Sepsis (View protocol) If YES complete Sepsis Event Note If YES complete Sepsis Event Note Resident Review Statement Resident Statement: examined this patient, discussed with fall intern, agreed with fall intern Other Findings: Ms Paige is a 51-year-old female with past medical history of coronary artery disease status post drug-eluting stent placement in 2014, type 1 diabetes mellitus on Levemir 4 units twice a day and NovoLog sliding scale, history of acute blood loss anemia secondary to vaginal bleeding, subsequent hysterectomy in 2014, hyperlipidemia, depression with suicidal ideation, hypothyroidism on Synthroid, adrenal insufficiency on steroids both secondary to hypopituitarism with no pituitary lesions on CT scan, on medical marijuana to increase appetite, cocaine abuser, current active smoker presented to [facility] emergency department with chest pain since 3 days prior to presentation. Apparently the patient had her routine appointment at the tire adjuster Dr. mahoney's office where she described chest pain similar to an elephant sitting of the chest, therefore an EKG was done which had some nonspecific t wave changes therefore she was referred to [facility] ER. Upon presentation she describes her pain to be present since Tuesday which is 3 days prior to today's presentation, it was intermittent, 5 out of 10, worsens upon deep breathing, has been present since Tuesday never gone away, describes it like an elephant sitting on the chest, substernal location does not radiate anywhere. Vitals on presentation temperature of 98.4, pulse of 82, respiration of 16, blood pressure was 164/87, 96% on room air. White count within normal limits, H/H of 11.4/32.8, platelets of 309. Electrolytes within normal limits except potassium low at 3.4, glucose was found to be low at 47. Liver function test negative. Initial set of troponin I negative less than 0.01. Urine toxicology positive for cocaine and cannabis. EKG showed normal sinus rhythm with a rate of 75, T-wave inversions present in V2, V3, previous EKGs shows T-wave inversions in V2 however with 3 or relatively new. QTC of 456. Chest x-ray did not show any acute cardiopulmonary changes. Physical exam : alert and oriented 3, sitting comfortably on the bed initially however upon carrying on the conversation however, she became very labile, started to cry and seemed to be very depressed.Steroid faces with puffy cheeks, some de-pigmentation on the face, CVS : S1-S2 present, no murmur, RS : some basilar crackles, poor abdomen soft, nontender, bowel sounds present, lower extremity no edema. We will admit the patient to telemetry floor for continuous cardiac monitoring. Problem #1 chest pain. * Possible differential acute coronary syndrome versus pericarditis versus pleuritis versus cocaine induced ischemia. * Please note patient has a recent history of bronchitis being treated with Augmentin and steroid.Troponins, EKG 3, continue to monitor intakes and output, cardiology consult in a.m. Last echocardiogram in February 2016 with left ventricular ejection fraction greater than 60%. * Dr. Vázquez is her networking technology instructor, had seen her in office less than 6 months ago and a recent echocardiogram was done 10, as per the patient everything was within normal limits. * Watch for withdrawal of cocaine/cannabis. * Hold beta blockers for now in view of cocaine intoxication. #2 History of diabetes mellitus with diabetic neuropathy. * Continue to monitor fingerstick, continue Levemir 4 units twice daily, continue NovoLog sliding scale, current sliding scale according to home dosage, consistent carbohydrate 3 diet, will administer some IV fluids as she looks very dry. * Continue gabapentin 800 mg 3 times daily. #3 Hypokalemia. * Possible from decreased p.o. intake and dehydration, no EKG changes, replete and continue to monitor. #4. Hypopituitarism with secondary hypothyroidism and adrenal insufficiency. * Continue Cortef at home dosage. * Continue Synthroid at home dosage. * She was given 125 mg of IV Solu-Medrol at the emergency department. #5 Depression + suicidal ideation * patient very tearful and stressed, doesn't want to discuss current stressors, keeps saying "i don't have guts to commit suicide even if I wanted to" * Previous admission to [facility] for suicidal ideation. * Asked if she felt safe, when stepped out, she reinforced she felt safe. * Recheck thyroid function test, serum cortisol. * Ct lexapro * Psych consult in am. #6 Current active smoker drug abuser : * smoking cessation couselling, cocaine abuse counselling. Doctors : PCP : Dr Cornejo Endo : Dr. Mahoney Cardio : Dr. Vázquez. Diet : CC-2 DVT px :LOVENOX and ALPS PP. Full code (patients denied she doesn't want anything done, but currently very depressed with suicidal ideation , so will keep full code for now. DexterRuth pérez 10/25/17 0335: Core Measures/Misc (01/30) Sepsis (View protocol) If YES complete Sepsis Event Note If YES complete Sepsis Event Note Attending MD Review Statement Attending Statement Attending MD Statement: examined this patient, discuss w/resident/PA/OYSTER FLOATER, agreed w/resident/PA/OYSTER FLOATER, reviewed EMR data (avail), reviewed images, amended to note Attending Assessment/Plan: CC: chest pain PMH: CAD S/P STEMI S/P TINA stent in 2014, insulin-dependent diabetes, hypopituitarism with secondary abdominal insufficiency and secondary hypothyroidism, substance abuse, depression Patient was sent from Dr. mahoney's office for chest pain. Patient was following there has routine appointment. She states that since last 4 days she has been noticing central chest pain, episode a week lasting 3-4 minutes every time, approximately 10 episodes per day, pain ranges from 4-8/10 in severity, nonradiating, pressure-like, worsening with sneezing, coughing, deep breathing, not related with activity. Denies any nasal congestion, discharge, postnasal drip, cough, expectoration, fever, chills, urinary symptoms, shortness of breath. Since last 3 days she has been feeling generalized fatigue and tiredness and was resting on bed most of the time. She never had similar episodes of pain past. When she had her previous heart attack pain was mostly in the back and was associated with shortness of breath. She is current smoker, uses marijuana but denies any other illicit drugs for example cocaine. She is compliant with all her medications. ECG was obtained and Dr. mahoney's office which showed some changes so she was sent to ER. Vitals: Temperature 98.2, pulse 84, RR 20, blood pressure 117/67, saturating 98% on room air On exam: A O 3, cooperative, no acute distress, neck supple, JVD normal, no lymphadenopathy, mucosa moist, no focal neurological deficit, no dependent edema , no obvious skin rashes or inflammation CVS: S1-S2, RRR. RS: Clear to auscultate bilaterally. Abdomen: Soft, NT, ND, bowel sounds present. CXR: No active disease in the chest. ECG: Flattening of T-wave in V3- V4 as compared to previous ECG Assessment and plan 52-year-old female with extensive past medical history as mentioned above presented in ER for atypical chest pain but associated with new ECG changes and flattening of T-wave in V3 and V4. Patient is been compliant with all her medications including aspirin and Plavix. Her U tox is positive for cocaine but she denies use. She endorses marijuana use. Patient has a very labile affect and pressured speech. Piper Installer was called from ER who agreed for telemetry admission to rule out acute coronary syndrome. Less likely PE according to history and d-dimer is negative. Patient was hypoglycemic on arrival as she directly came from doctor's appointment she could not eat anything for a few hours. Her blood sugar improved after IV dextrose. Patient refused psych consults to me for her depression and denied any suicidal ideation. + Chest pain with ECG changes: rule out ACS + History of CAD S/P STEMI S/P TINA stent in 2014, insulin-dependent diabetes, hypopituitarism with secondary abdominal insufficiency and secondary hypothyroidism, substance abuse, depression - Admit to telemetry - Continuous telemetry monitoring - Serial troponin and EKGs - 2-D echo in a.m. if significant increase in troponin - Cardiology consult in a.m. - Continue aspirin and Plavix, atorvastatin - Discontinue carvedilol - Continue rest of her home medications including insulin - Patient is reluctant to be admitted in hospital and wants early discharge.
[2017-10-24] MEDS ORDERED: PROAIR HFA8.5 GM INH (23:46)
[2017-10-24] MEDS ORDERED: TRAZODONE HCL50 M1 PO (23:46)
[2017-10-25 01:28] VITALS: BP 130/82
--- NOTE | 2017-10-25 03:37 | Admission Certification ---
Admission Certification Certification Statement - As attending physician, I certify that at the time of - admission, based on clinical presentation, severity of - symptoms, need for further diagnostic testing and - therapeutic interventions, and risk of adverse outcomes - without in-hospital treatment, in my clinical assessment, - this patient requires an acute hospital stay for a minimum - of two nights or longer. I have also considered psychsocial - factors such as support system, advanced age, financial - issues, cognitive issues, and failed out-patient treatments, - past re-admission history, safety of patient, and lack of - compliance as applicable. Specific rationale supporting this admission is: Chest pain with ECG changes : rule out ACS
[2017-10-25 07:14] VITALS: BP 130/76
--- NOTE | 2017-10-25 07:17 | PN- Housestaff ---
Subjective Follow-up For: Chest pain Subjective: Patient seen and examined. Resting comfortably. Reports improvement in system and does not have any chest pain pain at present. Patient was feeling emotional and was tearful. She wants to be discharged soon. Patient was offered psychiatric evaluation however she declines. Denies any suicidal ideation at present. Review of Systems Constitutional: Reports: see HPI. Objective Last 24 Hrs of Vital Signs/I&O Vital Signs Date Time Temp Pulse Resp B/P B/P Pulse O2 O2 Flow FiO2 Mean Ox Delivery Rate 10/25 0755 98.1 86 25 130/76 10/25 0714 98.1 86 25 130/76 989 Room Air 10/25 0142 Room Air 10/25 0128 97.8 80 21 130/82 97 Room Air 10/24 2350 98.6 80 20 120/61 10/24 2321 98.6 80 20 120/61 97 Room Air 10/24 2149 Room Air 10/24 2136 98.4 82 16 164/87 96 Room Air 10/24 1908 98.2 84 20 117/67 98 Room Air 10/24 1648 97.0 80 15 141/84 95 Room Air Room Air Intake & Output 10/25 1600 10/25 0800 10/25 0000 Intake Total 1000 Output Total Balance 1000 Intake, Oral 1000 Patient 148 lb 147 lb Weight Weight Bed scale Reported by Patient Measurement Method Physical Exam General Appearance: Alert, Oriented X3 Cardiovascular: Normal S1, Normal S2 Lungs: Clear to Auscultation, Normal Air Movement Abdomen: Normal Bowel Sounds, Soft Neurological: Normal Speech Current Medications: Current Medications Sig/Maximus Start time Last Medication Dose Route Stop Time Status Admin Aspirin 0 .STK-MED ONE 10/24 2209 DC PO Aspirin 325 MG ONCE ONE 10/24 2199 DC 10/24 PO 10/24 2200 220 Atorvastatin Calcium 80 MG 1700 10/25 1700 AC PO Carvedilol 6.25 MG BID 10/24 2340 DC 10/24 PO 2350 Clopidogrel Bisulfate 75 MG DAILY 10/25 899 AC 10/25 PO 0755 Enoxaparin Sodium 40 MG DAILY 10/25 09 AC 10/25 SC 0757 Escitalopram Oxalate 10 MG DAILY 10/25 09 AC 10/25 PO 0755 Gabapentin 800 MG TID 10/25 0030 AC 10/25 PO 0755 Hydrocortisone 10 MG QPM 10/25 2100 AC PO Hydrocortisone 15 MG 8AM 10/25 0800 AC 10/25 PO 0835 Insulin Aspart 0 AT BEDTIME 10/25 2100 AC SC Insulin Aspart 0 TIDAC 10/25 0800 AC 10/25 SC 0753 Insulin Detemir 4 UNITS BID 10/25 0100 CAN SC Insulin Detemir 4 UNITS BID 10/24 2345 AC 10/25 SC 0753 Levothyroxine Sodium 0.05 MG DAILY AC 10/25 0700 AC 10/25 PO 0702 Lisinopril 5 MG DAILY 10/25 0900 AC 10/25 PO 0755 Methylprednisolone 0 .STK-MED ONE 10/24 1736 DC .ROUTE Methylprednisolone 125 MG ONCE ONE 10/24 1700 DC 10/24 IV 10/24 1701 1732 Multivitamins 1 TAB DAILY 10/25 0900 AC 10/25 PO 0756 Nicotine 14 MG DAILY 10/25 0900 DC TOP Nicotine 14 MG DAILY 10/25 0230 AC 10/25 TOP 0757 Ondansetron HCl 4 MG ONCE ONE 10/25 0430 DC 10/25 IV 10/25 0431 0432 Pantoprazole Sodium 40 MG ONCE ONE 10/25 0430 DC 10/25 IV 10/25 0431 0432 Last 24 Hrs of Lab/Hi Results Last 24 Hrs of Labs/Mics: Laboratory Tests 10/25/17 0800: Anion Gap 11, Estimated GFR > 60, BUN/Creatinine Ratio 21.3, Magnesium 1.7, Troponin I < 0.01, CBC w Diff NO MAN DIFF REQ, RBC 3.66 L, MCV 90.5, MCH 30.5, MCHC 33.7, RDW 14.3, MPV 9.3, Gran % 93.9 H, Lymphocytes % 5.1 L, Monocytes % 0.8 L, Eosinophils % 0.1, Basophils % 0.1, Absolute Granulocytes 14.2 H, Absolute Lymphocytes 0.8 L, Absolute Monocytes 0.1, Absolute Eosinophils 0, Absolute Basophils 0 10/24/177: Urine Opiates Screen < 100, Methadone Screen 43, Barbiturate Screen < 60, Ur Phencyclidine Scrn < 6.00, Amphetamines Screen < 100, U Benzodiazepines Scrn < 85, Urine Cocaine Screen 684 H, Urine Cannabis Screen > 80.00 H 10/24/17 1910: Anion Gap 9, Estimated GFR > 60, BUN/Creatinine Ratio 15.0, Glucose 47 *L, Calcium 9.2, Total Bilirubin 0.2, AST 19, ALT 15, Alkaline Phosphatase 91, Troponin I < 0.01, Total Protein 6.6, Albumin 3.7, Globulin 2.9, Albumin/ Globulin Ratio 1.3 10/24/17 1723: D-Dimer High Sensitivty < 200, CBC w Diff NO MAN DIFF REQ, RBC 3.68 L, MCV 89.2 , MCH 31.0, MCHC 34.8, RDW 14.8 H, MPV 9.0, Gran % 55.5, Lymphocytes % 32.5, Monocytes % 6.3, Eosinophils % 4.9, Basophils % 0.8, Absolute Granulocytes 4.7, Absolute Lymphocytes 2.7, Absolute Monocytes 0.5, Absolute Eosinophils 0.4, Absolute Basophils 0.1 Assessment/Plan Assessment: The patient a 52-year-old female with past medical history of CAD status post STEMI status post TINA stent in 2014. 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 Along with history of polysubstance abuse and depression. She is here for evaluation of central chest pain ongoing for 4 days 10 episodes per day nonradiating pressure-like lasting for 3-4 minutes. Worsened by sneezing coughing and deep breathing. Not related with any activity. Of note she reports feeling generalized fatigue and tiredness. She visited Dr. mahoney's office yesterday where her EKG was done which showed some changes hence patient was sent to ER. In the ER patient was found to have flattening of T-wave in V3 and V4 as compared to previous EKG has patient was admitted to telemetry for further evaluation. Her U tox was positive for cocaine. PE less likely considering negative d-dimer. #Chest pain with EKG changes Possible differential acute coronary syndrome versus pericarditis versus pleuritis versus cocaine induced ischemia -Telemetry monitoring -2 sets of troponin negative, 3rd set @11am -EKG redemonstrated T-wave flattening in V3 and V4, improved from previous EKG -Cardiology consult placed with Dr. Mullen -Continue aspirin Plavix and atorvastatin -As per admitting H&P patient had an echocardiogram done less than [address] Vázquez's office and was within normal limits. 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 -Continue Cortef and Synthroid. She received 125 mg of IV Solu-Medrol in ED #History of depression Patient is refusing psychiatric evaluation, denying any suicidal ideation -Continue Lexapro #Leukocytosis Patient has elevated WBC count however is afebrile without any respiratory or urinary symptoms at present. Continue to monitor off antibiotics for now. Will recheck CBCs tomorrow #Hypokalemia on presentation likely secondary to poor oral intake resolved #Hypoglycemia, patient was hypoglycemic initially on presentation her blood sugar improved after IV dextrose patient reports not eating for several hours and coming straight to ED from doctor's appointment. Diabetic diet/full code/DVT prophylaxis with Lovenox Problem List: 1. Cocaine abuse 2. Chest pain Pain Ratin Pain Location: na Pain Goal: Pain 4 or less Pain Plan: prn Tomorrow's Labs & Rationales: cbc
[2017-10-25 09:20] LABS: ABSOLUTE BASOPHIL COUNT 0 /CUMM (0.0-0.2); ABSOLUTE EOSINOPHIL COUNT 0 /CUMM (0.0-0.7); ABSOLUTE GRANULOCYTE CT 14.2 /CUMM (1.4-6.5); ABSOLUTE LYMPH COUNT 0.8 /CUMM (1.2-3.4); ABSOLUTE MONOCYTE COUNT 0.1 /CUMM (0.10-0.60); BASOPHIL % 0.1 % (0.0-2.0); EOSINOPHIL % 0.1 % (0-5); HEMATOCRIT 33.1 % (37-47); MEAN CORPUSCULAR HGB 30.5 PG (27.0-31.0); MEAN CORPUSCULAR HGB CONC 33.7 G/DL (33.0-37.0); MEAN CORPUSCULAR VOLUME 90.5 FL (81.0-99.0); MEAN PLATELET VOLUME 9.3 FL (7.4-10.4); PLATELET COUNT 287 /CUMM (130-400); RBC DISTRIBUTION WIDTH 14.3 % (11.5-14.5); RED BLOOD CELL CT 3.66 /CUMM (4.20-5.40)
[2017-10-25 09:57] LABS: GRANULOCYTE % 93.9 % (42.2-75.2); WHITE BLOOD CELL COUNT 15.2 /CUMM (4.8-10.8)
[2017-10-25 14:23] VITALS: BP 118/80
[2017-10-25] MEDS ORDERED: COREG6.25 M1 PO (14:39)
--- NOTE | 2017-10-25 14:40 | Cons- Cardiology ---
General Information and HPI Consulting Request Date of Consult: 10/25/17 Requested By: Hillary Fritz MD Reason for Consult: Chest pain, CAD History of Present Illness: The patient is a pleasant 52-year-old female with history of CAD, status post drug-eluting stent placement in 2014, diabetes mellitus, hypothyroidism who presents with chest pain. She was referred to the hospital from Dr. Deshpande's office for evaluation of chest discomfort. The chest discomfort began 4 days ago and is a substernal pressure which is a 5 out of 10 in severity. There is no radiation of the pain. Each episode lasts for approximately 3 minutes, and she has been having up to 10 episodes per day. She notes that overnight she had an episode of vomiting, and she has had no further pain since then. She is currently asymptomatic. Urine tox screen was positive for cocaine, however she denies cocaine use. She believes her marijuana may have been spiked with cocaine. No shortness of breath. No palpitations. No diaphoresis. No nausea or vomiting Allergies/Medications Allergies: Coded Allergies: celery (VOMITING 10/24/17) codeine (ITCHING 10/24/17) Home Med List: Albuterol Sulfate (Proair Hfa) 90 MCG HFA.AER.AD 2 PUF INH Q4-6 PRN PRN SOB ( Reported) Aspirin (Aspirin*) 81 MG TAB.CHEW 1 TAB PO DAILY HEART (Reported) Atorvastatin Calcium (Lipitor) 80 MG TABLET 1 TAB PO DAILY lipid lowering ( Reported) Carvedilol (Coreg) 6.25 MG TABLET 1 TAB PO BID heart health Resume on 10/27 Clopidogrel Bisulfate (Clopidogrel) 75 MG TABLET 1 TAB PO DAILY BLOOD THINNER (Reported) Escitalopram Oxalate 10 MG TABLET 1 TAB PO DAILY MENTAL HEALTH (Reported) Gabapentin (Neurontin) 800 MG TABLET 1 TAB PO TID NEUROPATHY (Reported) Hydrocortisone (Cortef) 5 MG TABLET 0 PO SEE ADMIN CRITERIA adrenal insufficiency please take. 15 mg(3 tabs) at 8 AM every day. 10 mg(2 tabs) at 5 PM every day. Insulin Detemir (Levemir) 100 UNIT/ML VIAL 4 UNIT SC BID DM Insulin Lispro (Humalog) 100 UNIT/ML VIAL 0 SC SEE ADMIN CRITERIA diabetes please take.- blood sugar insulin dose <80 mg/dl no insulin 80-150 mg/dl 3 units 151-200 mg/dl 4 units 201-250 mg/dl 5 units 251-300 mg/dl 6 units 301-350 mg/dl 7 units 351-400 mg/dl 8 units more than 400mg/dl 9 units Bed time scale blood sugar insulin dose 80-150 mg/dl no dose 151-200 mg/dl no dose 201-250 mg/dl no dose 251-300 mg/dl 2 units 301-350 mg/dl 3 units 351-400 mg/dl 4 units more than 400 mg/ml Levothyroxine Sodium (Synthroid) 50 MCG TABLET 1 TAB PO DAILY AC THYROID ( Reported) Lisinopril (Prinivil) 5 MG TABLET 1 TAB PO DAILY HEART (Reported) Trazodone HCl 50 MG TABLET 1 TAB PO QPM SLEEP (Reported) Current Medications: Current Medications Sig/Maximus Start time Last Medication Dose Route Stop Time Status Admin Aspirin 0 .STK-MED ONE 10/24 2209 DC PO Aspirin 325 MG ONCE ONE 10/24 2199 DC 10/24 PO 10/24 Atorvastatin Calcium 80 MG 1700 10/25 1700 AC PO Carvedilol 6.25 MG BID 10/24 2340 DC 10/24 PO 2350 Clopidogrel Bisulfate 75 MG DAILY 10/25 0900 AC 10/25 PO 0755 Enoxaparin Sodium 40 MG DAILY 10/25 0900 AC 10/25 SC 0757 Escitalopram Oxalate 10 MG DAILY 10/25 0900 AC 10/25 PO 0755 Gabapentin 800 MG TID 10/25 0030 AC 10/25 PO 1338 Hydrocortisone 10 MG QPM 10/25 2100 AC PO Hydrocortisone 15 MG 8AM 10/25 0800 AC 10/25 PO 0835 Insulin Aspart 0 AT BEDTIME 10/25 2100 AC SC Insulin Aspart 0 TIDAC 10/25 0800 AC 10/25 SC 1225 Insulin Detemir 4 UNITS BID 10/25 0100 CAN SC Insulin Detemir 4 UNITS BID 10/24 2345 AC 10/25 SC 0753 Levothyroxine Sodium 0.05 MG DAILY AC 10/25 0700 AC 10/25 PO 0702 Lisinopril 5 MG DAILY 10/25 0900 AC 10/25 PO 0755 Methylprednisolone 0 .STK-MED ONE 10/24 1736 DC .ROUTE Methylprednisolone 125 MG ONCE ONE 10/24 1700 DC 10/24 IV 10/24 1701 1732 Multivitamins 1 TAB DAILY 10/25 0900 AC 10/25 PO 0756 Nicotine 14 MG DAILY 10/25 0900 DC TOP Nicotine 14 MG DAILY 10/25 0230 AC 10/25 TOP 0757 Ondansetron HCl 4 MG ONCE ONE 10/25 0430 DC 10/25 IV 10/25 0431 0432 Pantoprazole Sodium 40 MG ONCE ONE 10/25 0430 DC 10/25 IV 10/25 0431 0432 Review of Systems Review of Systems: No fever. No chills. No rash. No tremor. All other systems were reviewed, and were noted to be negative. 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 spouse Services at Home: None Primary Language: Thai Smoking Status: Current Everyday Smoker ETOH Use: denies use Illicit Drug Use: marijuana, MEDICAL MARIJUANA Living Will? no Functional Ability ADLs Independent: dressing, eating, toileting, bathing. Ambulation: independent IADLs Independent: shopping, housework, finances, food prep, telephone, transportation , medication admin. Exam & Diagnostic Data Vital Signs and I&O Vital Signs Date Time Temp Pulse Resp B/P B/P Pulse O2 O2 Flow FiO2 Mean Ox Delivery Rate 10/25 1423 97.7 83 20 118/80 95 Room Air 10/25 0755 98.1 86 25 130/76 10/25 0714 98.1 86 25 130/76 989 Room Air 10/25 0142 Room Air 10/25 0128 97.8 80 21 130/82 97 Room Air 10/24 2350 98.6 80 20 120/61 / 2321 98.6 80 20 120/61 97 Room Air 10/24 2149 Room Air 10/24 2136 98.4 82 16 164/87 96 Room Air 10/24 1908 98.2 84 20 117/67 98 Room Air 10/24 1648 97.0 80 15 141/84 95 Room Air Room Air Intake & Output 10/25 1600 10/25 0800 10/25 0000 10/24 1600 10/24 0810/24 0000 Intake Total 480 1000 Output Total Balance 480 1000 Intake, Oral 480 1000 Patient 148 lb 147 lb Weight Weight Bed scale Reported by Patient Measurement Method Physical Exam: Gen: The patient is in no acute distress HEENT: Normal nose, ears, and oropharynx. Pupils equal bilaterally. Conjunctiva normal. Neck: Supple with no JVD, no masses, and no thyromegaly Lungs: Clear to auscultation with normal respiratory effort Heart: RRR, S1, S2, no murmurs. No peripheral edema, 2+ pulses in the lower extremities bilaterally Abdomen: Soft, nontender, no masses. No hepatomegaly. No splenomegaly Extremities: No clubbing or cyanosis. Normal muscle strength in the upper and lower extremities Skin: Normal skin turgor with no skin ulcers or lesions noted. Neuro: Cranial nerves intact. Sensation intact Psych: Alert and oriented x 3 with appropriate affect Labs/Hi Results: Laboratory Tests 10/25 10/25 10/24 1105 0800 2107 Chemistry Sodium (137 - 145 mmol/L) 134 L Potassium (3.5 - 5.1 mmol/L) 4.7 Chloride (98 - 107 mmol/L) 104 Carbon Dioxide (22 - 30 mmol/L) 19 L Anion Gap (5 - 16) 11 BUN (7 - 17 mg/dL) 17 Creatinine (0.5 - 1.0 mg/dL) 0.8 Estimated GFR (>60 ml/min) > 60 BUN/Creatinine Ratio (7 - 25 %) 21.3 Magnesium (1.6 - 2.3 mg/dL) 1.7 Troponin I (< 0.11 ng/ml) < 0.01 < 0.01 Hematology CBC w Diff NO MAN DIFF REQ WBC (4.8 - 10.8 /CUMM) 15.2 H RBC (4.20 - 5.40 /CUMM) 3.66 L Hgb (12.0 - 16.0 G/DL) 11.2 L Hct (37 - 47 %) 33.1 L MCV (81.0 - 99.0 FL) 90.5 MCH (27.0 - 31.0 PG) 30.5 MCHC (33.0 - 37.0 G/DL) 33.7 RDW (11.5 - 14.5 %) 14.3 Plt Count (130 - 400 /CUMM) 287 MPV (7.4 - 10.4 FL) 9.3 Gran % (42.2 - 75.2 %) 93.9 H Lymphocytes % (20.5 - 51.1 %) 5.1 L Monocytes % (1.7 - 9.3 %) 0.8 L Eosinophils % (0 - 5 %) 0.1 Basophils % (0.0 - 2.0 %) 0.1 Absolute Granulocytes (1.4 - 6.5 /CUMM) 14.2 H Absolute Lymphocytes (1.2 - 3.4 /CUMM) 0.8 L Absolute Monocytes (0.10 - 0.60 /CUMM) 0.1 Absolute Eosinophils (0.0 - 0.7 /CUMM) 0 Absolute Basophils (0.0 - 0.2 /CUMM) 0 Toxicology Urine Opiates Screen (>2000 NG/ML) < 100 Methadone Screen (>300 NG/ML) 43 Barbiturate Screen (>200 NG/ML) < 60 Ur Phencyclidine Scrn (>25 NG/ML) < 6.00 Amphetamines Screen (>1000 NG/ML) < 100 U Benzodiazepines Scrn (>200 NG/ML) < 85 Urine Cocaine Screen (>300 NG/ML) 684 H Urine Cannabis Screen (>50 NG/ML) > 80.00 H 10/24 10/24 1910 1723 Chemistry Sodium (137 - 145 mmol/L) 141 Potassium (3.5 - 5.1 mmol/L) 3.4 L Chloride (98 - 107 mmol/L) 107 Carbon Dioxide (22 - 30 mmol/L) 25 Anion Gap (5 - 16) 9 BUN (7 - 17 mg/dL) 12 Creatinine (0.5 - 1.0 mg/dL) 0.8 Estimated GFR (>60 ml/min) > 60 BUN/Creatinine Ratio (7 - 25 %) 15.0 Glucose (65 - 99 mg/dL) 47 *L Calcium (8.4 - 10.2 mg/dL) 9.2 Total Bilirubin (0.2 - 1.3 mg/dL) 0.2 AST (14 - 36 U/L) 19 ALT (9 - 52 U/L) 15 Alkaline Phosphatase (<127 U/L) 91 Troponin I (< 0.11 ng/ml) < 0.01 Total Protein (6.3 - 8.2 g/dL) 6.6 Albumin (3.5 - 5.0 g/dL) 3.7 Globulin (1.9 - 4.2 gm/dL) 2.9 Albumin/Globulin Ratio (1.1 - 2.2 %) 1.3 Coagulation D-Dimer High Sensitivty (0 - 243 ng/ml) < 200 Hematology CBC w Diff NO MAN DIFF REQ WBC (4.8 - 10.8 /CUMM) 8.4 RBC (4.20 - 5.40 /CUMM) 3.68 L Hgb (12.0 - 16.0 G/DL) 11.4 L Hct (37 - 47 %) 32.8 L MCV (81.0 - 99.0 FL) 89.2 MCH (27.0 - 31.0 PG) 31.0 MCHC (33.0 - 37.0 G/DL) 34.8 RDW (11.5 - 14.5 %) 14.8 H Plt Count (130 - 400 /CUMM) 309 MPV (7.4 - 10.4 FL) 9.0 Gran % (42.2 - 75.2 %) 55.5 Lymphocytes % (20.5 - 51.1 %) 32.5 Monocytes % (1.7 - 9.3 %) 6.3 Eosinophils % (0 - 5 %) 4.9 Basophils % (0.0 - 2.0 %) 0.8 Absolute Granulocytes (1.4 - 6.5 /CUMM) 4.7 Absolute Lymphocytes (1.2 - 3.4 /CUMM) 2.7 Absolute Monocytes (0.10 - 0.60 /CUMM) 0.5 Absolute Eosinophils (0.0 - 0.7 /CUMM) 0.4 Absolute Basophils (0.0 - 0.2 /CUMM) 0.1 Diagnostic Data EKG Results EKG tracing is independently reviewed, and reveals normal sinus rhythm at 84 with premature ventricular contractions and left atrial abnormality CXR Results Lungs are clear without consolidation, edema, effusion, or pneumothorax. The cardiomediastinal silhouette appears normal. There is a coronary stent in place. There are mild degenerative changes in the thoracolumbar spine. Other Results Echocardiogram 03/11/16: Normal size left ventricle. Normal left ventricular ejection fraction visually estimated at > 60%. Mild mitral regurgitation. Mild posterior mitral prolapse. Mild tricuspid regurgitation. Trace pulmonic regurgitation. Small pericardial effusion. Assessment/Plan Assessment/Plan The patient is a 52-year-old female with history of known CAD status post stent placement 3 years ago presented with intermittent chest pain over the past few days, now pain-free. Urine tox was positive for cocaine. She has ruled out for myocardial infarction with negative troponin 3. Recommendations: * Okay for discharge from cardiac standpoint. * The patient is advised to avoid cocaine * Would hold beta-sharif carvedilol for 24 hours because of possible cocaine use, and then restart given the known CAD * Continue other cardiac medications * Follow up in the office within 1 week. Consult Acknowledgment - Thank you for your consult request.
--- NOTE | 2017-10-25 14:45 | Patient Discharge Instructions ---
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 Vázquez within this week after discharge -Please call his office to make an appointment -Please avoid use of cocaine -Please start taking your beta-sharif carvedilol from 10/27/2017. -If you develop fever, any urinary or respiratory symptoms please call your primary care doctor Diet Recommended Diet: Diabetic, Heart Healthy Activity Activity Self Limited: Yes Acute Coronary Syndrome Inclusion Criteria At DC or during hospital stay patient has or had the following: ACS DIAGNOSIS No Discharge Core Measures Meds if any: Prescribed or Continued at Discharge Meds if any: NOT Prescribed or Continued at Discharge Congestive Heart Failure Inclusion Criteria At DC or during hospital stay patient has or had the following: CHF DIAGNOSIS No Discharge Core Measures Meds if any: Prescribed or Continued at Discharge Meds if any: NOT Prescribed or Continued at Discharge Cerebrovascular accident Inclusion Criteria At DC or during hospital stay patient has or had the following: CVA/TIA Diagnosis No Discharge Core Measures Meds if any: Prescribed or Continued at Discharge Meds if any: NOT Prescribed or Continued at Discharge Venous thromboembolism Inclusion Criteria VTE Diagnosis No VTE Type NONE VTE Confirmed by (Test) NONE Discharge Core Measures - Per Current guidelines, there needs to be overlap - treatment for the first 5 days of Warfarin therapy. - If discharged on Warfarin prior to 5 days of - overlap therapy, the patient will need to be - assessed for post discharge needs including - *Post discharge parental anticoagulation - *Warfarin and/or parental anticoagulation education - *Follow up date to check INR post discharge At least 5 days overlap therapy as Inpatient No Meds if any: Prescribed or Continued at Discharge Note: Overlap Therapy is Warfarin and Anticoagulant Meds if any: NOT Prescribed or Continued at Discharge
--- NOTE | 2017-10-25 15:31 | Discharge Summary ---
Visit Information Visit Dates Admission Date: 10/24/17 Discharge Date: 10/25/17 Hospital Course Course Attending Physician: Hillary Fritz MD Primary Care Physician: Chantal BONDS,Chantal Hospital Course: The patient is 52-year-old female with past medical history of CAD status post STEMI status post TINA stent in 2014. 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 Along with history of polysubstance abuse and depression. She presented to [facility] ED on 10/24 with complaint of central chest pain ongoing for past 4 days. She reported having 10 episodes per day nonradiating pressure- like sensation lasting for 3-4 minutes. It was worsened by sneezing coughing and deep breathing. Not related to any activity. He has been complaining of generalized fatigue and tiredness. 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 EKG was done and some changes were noted since patient was sent to the ED for further evaluation. Vitals on presentation within normal limits Admission labs were significant for potassium of 3.4 and glucose 47. U tox was positive for cocaine. Patient was admitted to telemetry floor for cardiac monitoring. Patient was evaluated by rug measurer Dr. Vázquez. ACS was ruled out, 3 sets of troponin and EKG being negative for any acute ST wave changes. Her home dose of Plavix atorvastatin and aspirin were continued. With UA being positive for cocaine the beta-sharif carvedilol was held. The patient is deemed stable to be discharged home after cardiology clearance. Patient will follow up within this week with Dr. Vázquez's office. -She was hold carvedilol for now and resume it on 10/27 and avoid cocaine abuse Patient has history of depression and was tearful on presentation. She declined any psychiatric evaluation. Her home dose of Lexapro was continued. She was also hypokalemic on presentation likely secondary to poor intake which resolved after repletion. She was also found to be hypoglycemic on presentation. She reported not eating for several hours and coming straight to ED from doctor's appointment. Her blood glucose improved after IV dextrose. Patient was found to have leukocytosis however was afebrile without any respiratory or urinary symptoms. We monitored patient off antibiotics. She was advised to call her primary care doctor if she develops fever or any symptoms Patient has history of diabetes and was managed with insulin sliding scale and Levemir home dose. Gabapentin was also continued. Her Cortef And Synthyroid were continued for hypopituitarism with secondary hypothyroidism and adrenal insufficiency. Allergies: Coded Allergies: celery (VOMITING 10/24/17) codeine (ITCHING 10/24/17) Disposition Summary Disposition Principal Diagnosis: Chest pain ACS ruled out Additional Diagnosis: History of polysubstance abuse History of depression Hypokalemia Hypoglycemia on presentation Discharge Disposition: home or self care Discharge Instructions General Discharge Information Code Status: Full Code Patient's Diet: Heart healthy Patient's Activity: As tolerated Follow-Up Instructions/Appts: -Please follow-up with your primary care doctor after discharge -Please follow-up with your rug measurer Dr. Vázquez within this week after discharge -Please call his office to make an appointment -Please avoid use of cocaine -Please start taking your beta-sharif carvedilol from 10/27/2017. -If you develop fever, any urinary or respiratory symptoms please call your primary care doctor Medications at Discharge Discharge Medications: Continue taking these medications: Atorvastatin Calcium (Lipitor) 80 MG TABLET 1 Tablet ORAL DAILY Comments: Last Taken: NOT GIVEN IN HOSPITAL Time: Lisinopril (Prinivil) 5 MG TABLET 1 Tablet ORAL DAILY Comments: Last Taken: 10/25/17 Time: 8:00 AM Gabapentin (Neurontin) 800 MG TABLET 1 Tablet ORAL THREE TIMES DAILY Qty = 90 Comments: Last Taken: 10/25/17 Time: 1:40 PM Clopidogrel Bisulfate (Clopidogrel) 75 MG TABLET 1 Tablet ORAL DAILY Qty = 90 Comments: Last Taken: 10/25/17 Time: 8:00 AM Escitalopram Oxalate (Escitalopram Oxalate) 10 MG TABLET 1 Tablet ORAL DAILY Qty = 90 Comments: Last Taken: 10/25/17 Time: 8:00 AM Aspirin (Aspirin*) 81 MG TAB.CHEW 1 Tablet ORAL DAILY Days = 30 Comments: Last Taken: 10/24/17 Time: 10:10 PM Insulin Detemir (Levemir) 100 UNIT/ML VIAL 4 Unit Inject into fatty tissue TWICE DAILY Days = 30 Comments: Last Taken: 10/25/17 Time: 7:50 AM Hydrocortisone (Cortef) 5 MG TABLET 0 ORAL SEE INSTRUCTIONS Qty = 90 Instructions: please take. 15 mg(3 tabs) at 8 AM every day. 10 mg(2 tabs) at 5 PM every day. Comments: Last Taken: 10/25/17 Time: 8:35 AM Insulin Lispro (Humalog) 100 UNIT/ML VIAL 0 Inject into fatty tissue SEE INSTRUCTIONS Qty = 1 Instructions: please take.- blood sugar insulin dose <80 mg/dl no insulin 80-150 mg/dl 3 units 151-200 mg/dl 4 units 201-250 mg/dl 5 units 251-300 mg/dl 6 units 301-350 mg/dl 7 units 351-400 mg/dl 8 units more than 400mg/dl 9 units Bed time scale blood sugar insulin dose 80-150 mg/dl no dose 151-200 mg/dl no dose 201-250 mg/dl no dose 251-300 mg/dl 2 units 301-350 mg/dl 3 units 351-400 mg/dl 4 units more than 400 mg/ml Levothyroxine Sodium (Synthroid) 50 MCG TABLET 1 Tablet ORAL DAILY BEFORE BREAKFAST Comments: Last Taken: 10/25/17 Time: 7:00 AM Trazodone HCl (Trazodone HCl) 50 MG TABLET 1 Tablet ORAL Every night Qty = 1 Albuterol Sulfate (Proair Hfa) 90 MCG HFA.AER.AD 2 Puff Inhale through mouth EVERY 4-6 HOURS NEEDED as needed for SOB Qty = 9 Comments: Last Taken: NOT GIVEN IN HOSPITAL Time: The following medications have been changed: Old: Carvedilol (Coreg) 6.25 MG TABLET 1 Tablet ORAL TWICE DAILY New: Carvedilol (Coreg) 6.25 MG TABLET 1 Tablet ORAL TWICE DAILY Qty = 30 Instructions: Resume on 10/27 Comments: Last Taken: 10/24/17 Time: 11:50 PM Copies To: Chantal BONDS,Patrick Vázquez MD,Lyle Gómez MD Review Statement Documenting Attending: Hillary Fritz MD
== END 2017-10-25 16:05 | DRG 198 ==
LOC: ERH 16:36 → 1NO 22:58 → ERHI 22:58 → ENRESERV 23:45 → 1NO 10-25 00:54 → ENPENDDIS 10-25 15:24 → 1NO 10-25 16:05
PROVIDERS: Internal Medicine; Physician Assistant
DX: R07.9 Chest pain, unspecified (principal); F14.10 Cocaine abuse, uncomplicated; E87.6 Hypokalemia; E23.0 Hypopituitarism; E03.9 Hypothyroidism, unspecified; F32.9 Major depressive disorder, single episode, unspecified; I25.2 Old myocardial infarction; Z95.5 Presence of coronary angioplasty implant and graft; D72.829 Elevated white blood cell count, unspecified; E10.42 Type 1 diabetes mellitus with diabetic polyneuropathy; E10.649 Type 1 diabetes mellitus with hypoglycemia without coma
CPT/HCPCS: ERO; 36592; 71046; 80307; 82436; 93005; 93010; 96374; J1650; J2405; J2930